=== PATIENT | female | born 1960 | race Caucasian/White ===

== ENCOUNTER 2020-03-28 09:35 | Outpatient (REF) | payer OTHER, SELFPAY ==
[2020-03-28 10:44] LABS: COVID-19 Test Negative (Negative)
== END 2020-03-28 09:36 | disposition home or self-care (01) ==
LOC: HO.LAB 09:35
PROVIDERS: PCP Internal Medicine; Visit Provider Internal Medicine
DX: Z20.828 Contact with and (suspected) exposure to other viral communicable diseases (principal)
CPT/HCPCS: 87635

== ENCOUNTER 2020-06-21 12:01 | Outpatient (REF) | payer OTHER, SELFPAY ==
[2020-06-21 12:22] LABS: COVID-19 Test Negative (Negative)
== END 2020-06-21 12:02 | disposition home or self-care (01) ==
LOC: HO.EMPCOV 12:01
PROVIDERS: Visit Provider Internal Medicine
DX: Z20.822 Contact with and (suspected) exposure to COVID-19 (principal)
CPT/HCPCS: 36415; 87635; C9803

== ENCOUNTER 2020-07-19 09:48 | Outpatient (REF) | payer OTHER, SELFPAY ==
[2020-07-19 10:08] LABS: MANUAL DIFF FLAG NO
[2020-07-19 10:10] LABS: Basophils Absolute Auto 0.1 X10*3/uL (0.0-0.2); Eosinophils Absolute Auto 0.1 X10*3/uL (0.0-0.4); Eosinophils Percent Auto 1.7 % (0-4); Hematocrit 43.3 % (37-47); Hemoglobin 14.2 g/dl (12.0-16.0); Imm Gran Abs Auto 0.01 X10*3/uL (0.00-0.03); Imm Gran Pct Auto 0.1 % (0.0-0.4); Lymphocytes Absolute Auto 2.1 X10*3/uL (1.2-4.9); Lymphocytes Percent Auto 28.7 % (20-40); Mean Corpuscular HGB Conc 32.8 g/dl (31.0-35.0); Mean Corpuscular Hemoglobin 31.1 pg (27.0-33.0); Mean Corpuscular Volume 94.7 fL (80-98); Monocytes Absolute Auto 0.6 X10*3/uL (0.1-1.2); Monocytes Percent Auto 8.6 % (2-11); Neutrophils Absolute Auto 4.4 X10*3/uL (2.0-8.3); Neutrophils Percent Auto 59.9 % (45-73); Platelet Count 270 X10*3/uL (160-400); Red Blood Count 4.57 X10*6/uL (4.20-5.50); Red Cell Distribution Width 12.7 % (11.0-16.0); White Blood Count 7.3 X10*3/uL (4.8-10.8)
[2020-07-19 10:41] LABS: Glucose Urine UA NEG (NEG); Leukocyte Esterase Urine NEG (NEG); Nitrite Urine NEG (NEG); Specific Gravity - Urine <= 1.005 (1.005-1.025); Urine Blood TRACE (NEG); Urine Ketones NEG (NEG); Urine Protein NEG (NEG-TRACE)
[2020-07-19 10:43] LABS: Appearance Urine CLEAR; Color Urine STRAW
[2020-07-19 10:56] LABS: Alanine Aminotransferase 13 U/L (0-31); Albumin Level 4.5 g/dL (3.5-5.0); Alkaline Phosphatase 80 U/L (39-117); Anion Gap 11 (12-20); Aspartate Amino Transferase 14 U/L (5-31); Bilirubin Total 0.5 mg/dL (0.0-1.0); Blood Urea Nitrogen 14 mg/dL (9-16); Calcium 9.5 mg/dL (8.4-10.2); Carbon Dioxide 30 mmol/L (22-29); Chloride 106 mmol/L (96-108); Cholesterol 230 mg/dL; Estimated Glomerular Filt Rate > 60; Glucose Fasting 91 mg/dL (60-99); HDL Cholesterol 56 mg/dL; LDL Cholesterol Calculated 153 mg/dl; Potassium 4.2 mmol/L (3.3-5.1); Sodium 143 mmol/L (135-145); Total Protein 6.9 g/dL (6.5-8.0); Triglycerides 108 mg/dL
[2020-07-19 11:17] LABS: Vitamin D 25-OH Total 48.8 ng/mL (>30)
[2020-07-19 11:49] LABS: RBC Urine 0-2 /HPF (0); Squamous Epithelial Cell Urine 1+ /LPF; WBC Urine 0 /HPF (0-4)
[2020-07-19 11:50] LABS: Amorphous Sediment Urine 1+ /LPF
[2020-07-19 12:07] LABS: Vitamin B12 161 pg/mL (200-900)
== END 2020-07-19 09:49 | disposition home or self-care (01) ==
LOC: HO.LAB 09:48
PROVIDERS: Visit Provider Internal Medicine
DX: Z00.00 Encounter for general adult medical examination without abnormal findings (principal); E55.9 Vitamin D deficiency, unspecified; E53.8 Deficiency of other specified B group vitamins; E78.00 Pure hypercholesterolemia, unspecified; D72.820 Lymphocytosis (symptomatic)
CPT/HCPCS: 36415; 80053; 80061; 81001; 82306; 82607; 82746; 85025

== ENCOUNTER 2020-07-30 08:11 | Outpatient (REF) | payer OTHER, SELFPAY ==
--- NOTE | ~2020-07-30 | MM_ITS ---
EXAMINATION: MM SCREENING DIGITAL BREAST TOMOSYNTHESIS, BILATERAL CLINICAL INFORMATION: Screening. Asymptomatic. The lifetime risk of breast cancer based on the Tyrer-Cuzick Model is 13%. COMPARISON: Mammography: 07/28/2019, 07/22/2018, 07/15/2017 TECHNIQUE: Digital breast tomosynthesis is performed in both the craniocaudal and mediolateral oblique views along with computer-aided detection (CAD). Synthesized 2D images are generated from the tomosynthesis. FINDINGS: There are scattered areas of fibroglandular density (ACR BI-RADS breast composition Category b). There are no significant masses, abnormal calcifications, or other abnormalities. There are some fine vascular calcifications. Low left axillary tail nodes stable. No significant changes from prior exams. MM/MM tomosynthesis screening BI IMPRESSION: No mammographic evidence of malignancy. ASSESSMENT: BI-RADS 2: Benign RECOMMENDATION: Routine annual mammography screening. This patient's information was entered into a reminder system with a target due date for their next mammogram.
== END 2020-07-30 08:12 | disposition home or self-care (01) ==
LOC: HO.MAMMO 08:11
PROVIDERS: PCP Internal Medicine; Visit Provider Internal Medicine
DX: Z12.31 Encounter for screening mammogram for malignant neoplasm of breast (principal)
CPT/HCPCS: 77063; 77067

== ENCOUNTER → 2020-09-19 13:13 | Outpatient (BNVA) | payer OTHER, SELFPAY | PROVIDERS: PCP Internal Medicine; Visit Provider Physician Assistant Medical | DX: Z13.89 Encounter for screening for other disorder (principal) | CPT/HCPCS: 99202 ==

== ENCOUNTER 2020-10-24 14:00 | Outpatient (REF) | payer OTHER, SELFPAY ==
[2020-10-24 16:41] LABS: Vitamin B12 290 pg/mL (200-900)
== END 2020-10-24 14:01 | disposition home or self-care (01) ==
LOC: HO.LNP 14:00
PROVIDERS: Visit Provider Internal Medicine
DX: E53.8 Deficiency of other specified B group vitamins (principal)
CPT/HCPCS: 82607; 82746

== ENCOUNTER 2021-02-04 15:45 | Outpatient (REF) | payer OTHER, SELFPAY ==
--- NOTE | ~2021-02-04 | XR_ITS ---
EXAMINATION: XR CHEST CLINICAL INFORMATION: Bronchospasm. COMPARISON: Most recent chest radiograph dated 04/14/2018. TECHNIQUE: 2 views of the chest were obtained. FINDINGS: The lungs are clear. The cardiomediastinal silhouette is normal in size. There is no pleural effusion or pneumothorax. No acute osseous abnormality. XR/XR chest 2V IMPRESSION: No acute cardiopulmonary findings.
== END 2021-02-04 15:46 | disposition home or self-care (01) ==
LOC: HO.XRAY 15:45
PROVIDERS: PCP Internal Medicine; Visit Provider Internal Medicine
DX: J98.01 Acute bronchospasm (principal)
CPT/HCPCS: 71046

== ENCOUNTER 2021-07-26 09:05 | Outpatient (REF) | payer OTHER, SELFPAY ==
[2021-07-26 10:59] LABS: MANUAL DIFF FLAG NO
[2021-07-26 11:10] LABS: Basophils Absolute Auto 0.1 X10*3/uL (0.0-0.2); Basophils Percent Auto 0.9 % (0-2); Eosinophils Absolute Auto 0.1 X10*3/uL (0.0-0.4); Eosinophils Percent Auto 2.1 % (0-4); Hematocrit 41.3 % (37.0-47.0); Hemoglobin 13.8 g/dl (12.0-16.0); Imm Gran Abs Auto 0.02 X10*3/uL (0.00-0.03); Imm Gran Pct Auto 0.3 % (0.0-0.4); Lymphocytes Absolute Auto 1.7 X10*3/uL (1.2-4.9); Lymphocytes Percent Auto 29.9 % (20-40); Mean Corpuscular HGB Conc 33.4 g/dl (31.0-35.0); Mean Corpuscular Hemoglobin 32.5 pg (27.0-33.0); Mean Corpuscular Volume 97.4 fL (80.0-98.0); Mean Platelet Volume 10.5 fL (9.4-12.3); Monocytes Absolute Auto 0.5 X10*3/uL (0.1-1.2); Monocytes Percent Auto 8.6 % (2-11); Neutrophils Absolute Auto 3.4 x10*3/uL (2.0-8.3); Neutrophils Percent Auto 58.2 % (45-73); Platelet Count 286 X10*3/uL (160-400); Red Blood Count 4.24 X10*6/uL (4.20-5.50); Red Cell Distribution Width 13.2 % (11.0-16.0); White Blood Count 5.8 X10*3/uL (4.8-10.8)
[2021-07-26 11:21] LABS: Appearance Urine CLEAR; Color Urine YELLOW; Glucose Urine UA NEG (NEG); Leukocyte Esterase Urine NEG (NEG); Nitrite Urine NEG (NEG); PH 6.5 (5.0-8.0); Specific Gravity - Urine <= 1.005 (1.005-1.025); Urine Blood TRACE (NEG); Urine Ketones NEG (NEG); Urine Protein NEG (NEG-TRACE)
[2021-07-26 11:27] LABS: Alanine Aminotransferase 14 U/L (0-31); Albumin Level 4.3 g/dL (3.5-5.0); Alkaline Phosphatase 74 U/L (39-117); Anion Gap 12 (12-20); Aspartate Amino Transferase 14 U/L (5-31); Bilirubin Total 0.4 mg/dL (0.0-1.0); Blood Urea Nitrogen 16 mg/dL (9-16); Calcium 9.4 mg/dL (8.4-10.2); Carbon Dioxide 28 mmol/L (22-29); Chloride 106 mmol/L (96-108); Cholesterol 254 mg/dL; Estimated Glomerular Filt Rate > 60; Glucose Fasting 94 mg/dL (60-99); HDL Cholesterol 59 mg/dL; LDL Cholesterol Calculated 177 mg/dl; Potassium 4.2 mmol/L (3.3-5.1); Sodium 142 mmol/L (135-145); Total Protein 6.7 g/dL (6.5-8.0); Triglycerides 94 mg/dL
[2021-07-26 11:37] LABS: Mucus Urine TRACE /LPF; Squamous Epithelial Cell Urine 1+ /LPF; WBC Urine 0 /HPF (0-4)
[2021-07-26 11:49] LABS: Vitamin D 25-OH Total 50.2 ng/mL (>30)
[2021-07-28 09:08] LABS: Folate 9.3 ng/mL (> or = 4.0); Vitamin B12 248 pg/mL (200-900)
== END 2021-07-26 09:06 | disposition home or self-care (01) ==
LOC: HO.HMGCLDS 09:05
PROVIDERS: Visit Provider Internal Medicine
DX: Z00.00 Encounter for general adult medical examination without abnormal findings (principal); E53.8 Deficiency of other specified B group vitamins; E78.00 Pure hypercholesterolemia, unspecified; D72.820 Lymphocytosis (symptomatic); E55.9 Vitamin D deficiency, unspecified; I48.0 Paroxysmal atrial fibrillation
CPT/HCPCS: 36415; 80053; 80061; 81001; 82306; 82607; 82746; 85025

== ENCOUNTER 2021-08-18 08:34 | Outpatient (REF) | payer OTHER, SELFPAY ==
--- NOTE | ~2021-08-18 | MM_ITS ---
EXAMINATION: MM SCREENING DIGITAL BREAST TOMOSYNTHESIS, BILATERAL CLINICAL INFORMATION: Screening. Asymptomatic. Prior history right stereotactic biopsy 05/13/2015 for calcifications (focal atypical ductal hyperplasia). Surgical biopsy 05/13/2015 (Fibrocystic changes, apocrine metaplasia, microcysts, sclerosing adenosis. No residual ADH). The lifetime risk of breast cancer based on the Tyrer-Cuzick Model is 26%. COMPARISON: Mammography: 07/30/2020, 07/28/2019, 07/22/2018, 07/15/2017, 06/19/2016, 05/23/2015, 05/13/2015, 05/01/2015 TECHNIQUE: Digital breast tomosynthesis is performed in both the craniocaudal and mediolateral oblique views along with computer-aided detection (CAD). Synthesized 2D images are generated from the tomosynthesis. FINDINGS: There are scattered areas of fibroglandular density (ACR BI-RADS breast composition Category b). There is minor scarring upper outer right breast consistent with the lumpectomy. Subtle asymmetric density is present central outer right breast 1.7 cm from nipple. Finding may represent incompletely compressed glandular tissue or summation artifact. Patient will be recalled for additional imaging. Neither breast shows abnormal calcifications. The axilla and skin contours are unremarkable. There is a incidental low left axillary tail node is similar to prior studies. Left breast shows no interval mass or developing density or architectural changes. MM/MM tomosynthesis screening BI IMPRESSION: 1. Right: Asymmetric density central outer breast on CC view possibly incompletely compressed glandular tissue or summation artifact. 2. Left: No mammographic evidence of malignancy. ASSESSMENT: BI-RADS 0: Incomplete - Need Additional Imaging Evaluation RECOMMENDATION: 1. Additional views of the right breast (rolled CC x 2; ML). 2. Targeted ultrasound if warranted after review of the additional views. 3. Radiology department staff will contact the patient for additional imaging. This patient's information was entered into a reminder system with a target due date for their next mammogram.
== END 2021-08-18 08:35 | disposition home or self-care (01) ==
LOC: HO.MAMMO 08:34
PROVIDERS: PCP Internal Medicine; Visit Provider Internal Medicine
DX: Z12.31 Encounter for screening mammogram for malignant neoplasm of breast (principal)
CPT/HCPCS: 77063; 77067

== ENCOUNTER 2021-08-22 08:16 | Outpatient (REF) | payer OTHER, SELFPAY ==
--- NOTE | ~2021-08-22 | MM_ITS ---
EXAMINATION: MM DIAGNOSTIC DIGITAL BREAST TOMOSYNTHESIS, RIGHT CLINICAL INFORMATION: Recall from screening for asymmetric density central right breast possibly incompletely compressed glandular tissue or summation artifact. Prior history focal atypical ductal hyperplasia status post excisional biopsy 05/13/2015. TC score 26%. COMPARISON: Mammography: 08/18/2021, 07/30/2020, 07/28/2019 TECHNIQUE: Digital breast tomosynthesis is performed. 2D images are generated from the tomosynthesis. The following views are obtained: Rolled CC x2, ML. FINDINGS: There are scattered areas of fibroglandular density (ACR BI-RADS breast composition Category b). Additional views show no persistent asymmetric density. There is no mass or architectural abnormality. Results are discussed with the patient at time of visit. MM/MM tomosynthesis added views R IMPRESSION: Additional views show no persistent asymmetric density. No significant changes from prior exams. ASSESSMENT: BI-RADS 1: Negative RECOMMENDATION: 1. Routine annual mammography screening. 2. The lifetime risk of breast cancer based on the Tyrer-Cuzick Model is 26%. Additional annual adjunct screening with breast MRI may be of benefit in women with a risk score of 20% or greater. This patient's information was entered into a reminder system with a target due date for their next mammogram.
== END 2021-08-22 08:17 | disposition home or self-care (01) ==
LOC: HO.MAMMO 08:16
PROVIDERS: Visit Provider Internal Medicine
DX: R92.2 Inconclusive mammogram (principal)
CPT/HCPCS: 77061; 77065

== ENCOUNTER 2021-09-01 15:28 | Outpatient (REF) | payer OTHER, SELFPAY ==
[2021-09-01 17:02] LABS: Blood Urea Nitrogen 18 mg/dL (9-16); Estimated Glomerular Filt Rate 53
== END 2021-09-01 15:29 | disposition home or self-care (01) ==
LOC: HO.LAB 15:28
PROVIDERS: Visit Provider Internal Medicine
DX: Z01.812 Encounter for preprocedural laboratory examination (principal)
CPT/HCPCS: 36415; 82565; 84520

== ENCOUNTER 2021-09-10 16:30 | Outpatient (REF) | payer OTHER, SELFPAY ==
--- NOTE | ~2021-09-10 | MR_ITS ---
EXAMINATION: MR BREAST WITHOUT AND WITH CONTRAST, BILATERAL CLINICAL INFORMATION: High-risk screening. The estimated lifetime risk of developing breast cancer is 26%. Prior history of focal atypical ductal hyperplasia post excisional biopsy. COMPARISON: None Mammography (nondiagnostic monitor review): 08/18/2021. TECHNIQUE: A 1.5 T system and a dedicated breast coil. T1-weighted sequences without fat-saturation were obtained prior to the administration of contrast. Fat-saturated T1 and T2-weighted sequences were also acquired. The patient received 6.5 mL of IV gadolinium-based contrast, Gadavist. Multiple sequential dynamic T1-weighted sequences were obtained through both breasts with fat-saturation. Subtracted images were reviewed. CAD postprocessing with 3-D reconstructions, maximum intensity projections and kinetic analysis was performed by the interpreting radiologist at an independent workstation and reviewed as a portion of this exam. FINDINGS: Amount of Remaining Fibroglandular Signal: There are scattered areas of fibroglandular tissue (ACR BI-RADS breast composition category B).* Background Parenchymal Enhancement: Mild Symmetry of Background Enhancement: Symmetric RIGHT BREAST: There are no suspicious findings. Masses: There are no suspicious enhancing masses. Non-mass Enhancement: There is no suspicious non-mass enhancement. Focus: There are no suspicious enhancing foci. Non-enhancing Findings: Associated findings: There are areas of architectural distortion consistent with previous surgery. There are some small cysts present. One of these may correspond to the suspected density on mammography. Kinetic Curve Assessment: Initial Phase: There are no suspicious areas of color signal. Delayed Phase: There are no areas of washout kinetics. LEFT BREAST: There are no suspicious findings. Masses: There are no suspicious enhancing masses. Non-mass Enhancement: There is no suspicious non-mass enhancement. Focus: There are no suspicious enhancing foci. Non-enhancing Findings: Associated Findings: There are a few small cysts present. Kinetic Curve Assessment: Initial Phase: There are no areas of suspicious color signal. Delayed Phase: There are no areas of washout kinetics. The axillary lymph nodes are morphologically normal. No suspicious internal mammary lymph nodes are seen. No suspicious abnormality in the visualized portions of chest or abdomen. MR/MR breast BI wo/w con IMPRESSION: No MR evidence of malignancy. ASSESSMENT: Right Breast: ACR BI-RADS 1: Negative examination. Left Breast: ACR BI-RADS 1: Negative examination. RECOMMENDATIONS: Recommend annual screening MRI in patients with an estimated lifetime risk of developing breast cancer greater than 20%.
== END 2021-09-10 16:31 | disposition home or self-care (01) ==
LOC: HO.MRI 16:30
PROVIDERS: Visit Provider Internal Medicine
DX: R92.8 Other abnormal and inconclusive findings on diagnostic imaging of breast (principal); R92.2 Inconclusive mammogram
CPT/HCPCS: 77049; A9585

== ENCOUNTER 2021-10-16 12:21 | Outpatient (REF) | payer OTHER, SELFPAY ==
--- NOTE | ~2021-10-16 | XR_ITS ---
EXAMINATION: XR CHEST CLINICAL INFORMATION: Pneumonia COMPARISON: Chest radiograph from 02/04/2021 TECHNIQUE: 2 views of the chest were obtained. FINDINGS: No focal consolidation. No pneumothorax. Trachea is midline. Cardiomediastinal silhouette is not enlarged. No large pleural effusion. Degenerative changes of the thoracolumbar spine. Soft tissues are unremarkable. XR/XR chest 2V IMPRESSION: No acute cardiopulmonary process.
== END 2021-10-16 12:22 | disposition home or self-care (01) ==
LOC: HO.HMGCX 12:21
PROVIDERS: Visit Provider Internal Medicine
DX: J18.0 Bronchopneumonia, unspecified organism (principal)
CPT/HCPCS: 71046

== ENCOUNTER → 2022-06-11 11:25 | Outpatient (BNVA) | payer OTHER, SELFPAY | PROVIDERS: PCP Internal Medicine; Visit Provider Internal Medicine | DX: Z13.89 Encounter for screening for other disorder (principal) | CPT/HCPCS: 36415; 84450; 84460; 86803; 87389; 99212 ==

== ENCOUNTER 2022-08-15 09:12 | Outpatient (REF) | payer OTHER, SELFPAY ==
[2022-08-15 11:19] LABS: MANUAL DIFF FLAG NO
[2022-08-15 11:27] LABS: Basophils Absolute Auto 0.1 X10*3/uL (0.0-0.2); Eosinophils Absolute Auto 0.2 X10*3/uL (0.0-0.4); Eosinophils Percent Auto 2.7 % (0-4); Hematocrit 41.7 % (37.0-47.0); Hemoglobin 13.7 g/dl (12.0-16.0); Imm Gran Abs Auto 0.01 X10*3/uL (0.00-0.03); Imm Gran Pct Auto 0.1 % (0.0-0.4); Lymphocytes Absolute Auto 2.1 X10*3/uL (1.2-4.9); Lymphocytes Percent Auto 30.7 % (20-40); Mean Corpuscular HGB Conc 32.9 g/dl (31.0-35.0); Mean Corpuscular Hemoglobin 31.9 pg (27.0-33.0); Mean Corpuscular Volume 97.2 fL (80.0-98.0); Mean Platelet Volume 10.6 fL (9.4-12.3); Monocytes Absolute Auto 0.5 X10*3/uL (0.1-1.2); Neutrophils Absolute Auto 3.9 x10*3/uL (2.0-8.3); Neutrophils Percent Auto 57.5 % (45-73); Platelet Count 269 X10*3/uL (160-400); Red Blood Count 4.29 X10*6/uL (4.20-5.50); White Blood Count 6.8 X10*3/uL (4.8-10.8)
[2022-08-15 11:54] LABS: Alanine Aminotransferase 13 U/L (0-31); Alkaline Phosphatase 79 U/L (39-117); Anion Gap 11 (12-20); Aspartate Amino Transferase 13 U/L (5-31); Bilirubin Total 0.5 mg/dL (0.0-1.0); Blood Urea Nitrogen 12 mg/dL (9-16); Calcium 8.8 mg/dL (8.4-10.2); Carbon Dioxide 29 mmol/L (22-29); Chloride 107 mmol/L (96-108); Cholesterol 237 mg/dL; Estimated Glomerular Filt Rate > 60; Glucose Fasting 106 mg/dL (60-99); HDL Cholesterol 50 mg/dL; LDL Cholesterol Calculated 163 mg/dl; Potassium 4.6 mmol/L (3.3-5.1); Sodium 142 mmol/L (135-145); Total Protein 6.1 g/dL (6.5-8.0); Triglycerides 121 mg/dL
[2022-08-15 12:10] LABS: Folate 9.5 ng/mL (> or = 4.0); Vitamin B12 517 pg/mL (200-900)
== END 2022-08-15 09:13 | disposition home or self-care (01) ==
LOC: HO.HMGCLDS 09:12
PROVIDERS: PCP Internal Medicine; Visit Provider Internal Medicine
DX: Z00.00 Encounter for general adult medical examination without abnormal findings (principal); E53.8 Deficiency of other specified B group vitamins; E55.9 Vitamin D deficiency, unspecified; D72.820 Lymphocytosis (symptomatic)
CPT/HCPCS: 36415; 80053; 80061; 82306; 82607; 82746; 85025

== ENCOUNTER 2022-08-22 12:51 | Outpatient (REF) | payer OTHER, SELFPAY ==
[2022-08-22 13:00] LABS: Appearance Urine Clear; Color Urine Yellow; Glucose Urine UA Negative (Negative); Leukocyte Esterase Urine Negative (Negative); Nitrite Urine Negative (Negative); Specific Gravity - Urine 1.015 (1.005-1.025); Urine Blood Negative (Negative); Urine Ketones Negative (Negative); Urine Protein Negative (Neg-Trace)
[2022-08-22 13:03] LABS: Bacteria Urine None Seen (None Seen); Hyaline Casts Urine 0-2 /LPF (0-2); WBC Urine 0-5 /HPF (0-5)
== END 2022-08-22 12:52 | disposition home or self-care (01) ==
LOC: HO.LNP 12:51
PROVIDERS: PCP Internal Medicine; Visit Provider Internal Medicine
DX: Z00.00 Encounter for general adult medical examination without abnormal findings (principal); E53.8 Deficiency of other specified B group vitamins; D72.820 Lymphocytosis (symptomatic); E55.9 Vitamin D deficiency, unspecified
CPT/HCPCS: 81001

== ENCOUNTER 2022-08-29 09:02 | Outpatient (REF) | payer OTHER, SELFPAY ==
--- NOTE | ~2022-08-29 | MM_ITS ---
EXAMINATION: MM SCREENING DIGITAL BREAST TOMOSYNTHESIS, BILATERAL CLINICAL INFORMATION: Screening. Asymptomatic. The lifetime risk of breast cancer based on the Tyrer-Cuzick Model is 7%. COMPARISON: Mammography: 08/22/2021, 08/18/2021, 07/30/2020; MR breasts 09/10/2021 TECHNIQUE: Digital breast tomosynthesis is performed in both the craniocaudal and mediolateral oblique views along with computer-aided detection (CAD). Synthesized 2D images are generated from the tomosynthesis. FINDINGS: There are scattered areas of fibroglandular density (ACR BI-RADS breast composition Category b). There are no significant masses, abnormal calcifications, or other abnormalities. Parenchymal pattern is similar to prior studies. There is no developing density or architectural abnormality. The axilla and skin contours are unremarkable. No significant changes. MM/MM tomosynthesis screening BI IMPRESSION: No mammographic evidence of malignancy. ASSESSMENT: BI-RADS 1: Negative RECOMMENDATION: Routine annual mammography screening. This patient's information was entered into a reminder system with a target due date for their next mammogram.
== END 2022-08-29 09:03 | disposition home or self-care (01) ==
LOC: HO.MAMMO 09:02
PROVIDERS: PCP Internal Medicine; Visit Provider Internal Medicine
DX: Z12.31 Encounter for screening mammogram for malignant neoplasm of breast (principal)
CPT/HCPCS: 77063; 77067

== ENCOUNTER 2022-09-04 15:27 | Outpatient (REF) | payer OTHER, SELFPAY ==
[2022-09-04 16:10] LABS: Iron 73 mcg/dL (30-160); Percent Iron Saturation 32 % (15-50); Total Iron Binding Capacity 227 mcg/dL (228-428); Unsaturated Iron Binding 154 ug/dL
== END 2022-09-04 15:28 | disposition home or self-care (01) ==
LOC: HO.LNP 15:27
PROVIDERS: Visit Provider Internal Medicine
DX: E53.8 Deficiency of other specified B group vitamins (principal); Z83.49 Family history of other endocrine, nutritional and metabolic diseases
CPT/HCPCS: 83540

== ENCOUNTER 2022-09-24 07:47 | Outpatient (REF) | payer OTHER, SELFPAY ==
[2022-09-24 08:30] LABS: Appearance Urine Clear; Color Urine Yellow; Glucose Urine UA Negative (Negative); Leukocyte Esterase Urine Negative (Negative); Nitrite Urine Negative (Negative); Specific Gravity - Urine 1.015 (1.005-1.025); UMIC TRIGGER UACC YES; Urine Blood Trace (Negative); Urine Ketones Negative (Negative); Urine Protein Negative (Neg-Trace)
[2022-09-24 08:36] LABS: Bacteria Urine None Seen (None Seen); Hyaline Casts Urine 0-2 /LPF (0-2); RBC Urine 0-2 /HPF (0-2); WBC Urine 0-5 /HPF (0-5)
== END 2022-09-24 07:48 | disposition home or self-care (01) ==
LOC: HO.LNP 07:47
PROVIDERS: PCP Internal Medicine; Visit Provider Internal Medicine
DX: R31.9 Hematuria, unspecified (principal)
CPT/HCPCS: 81001; 81003

== ENCOUNTER 2022-11-09 07:42 | Outpatient (REF) | payer OTHER, SELFPAY ==
[2022-11-09 07:58] LABS: Appearance Urine Clear; Color Urine Yellow; Glucose Urine UA Negative (Negative); Leukocyte Esterase Urine Negative (Negative); Nitrite Urine Negative (Negative); PH 6.5 (5.0-9.0); Urine Blood Negative (Negative); Urine Ketones Negative (Negative); Urine Protein Negative (Neg-Trace)
[2022-11-09 08:01] LABS: Bacteria Urine None Seen (None Seen); Hyaline Casts Urine 0-2 /LPF (0-2); RBC Urine 0-2 /HPF (0-2); Squamous Epithelial Cell Urine 0-2 /HPF (0-2); WBC Urine 0-5 /HPF (0-5)
== END 2022-11-09 07:43 | disposition home or self-care (01) ==
LOC: HO.LNP 07:42
PROVIDERS: PCP Internal Medicine; Visit Provider Internal Medicine
DX: R31.9 Hematuria, unspecified (principal)
CPT/HCPCS: 81001

== ENCOUNTER 2022-12-16 14:17 | Outpatient (REF) | payer OTHER, SELFPAY ==
--- NOTE | ~2022-12-16 | MR_ITS ---
EXAMINATION: MR BREAST WITHOUT AND WITH CONTRAST, BILATERAL CLINICAL INFORMATION: High-risk screening. COMPARISON: MRI 09/10/2021 TECHNIQUE: Imaging was performed with a dedicated breast coil. Prior to the administration of contrast, bilateral axial T1 and bilateral axial T2 weighted sequences were obtained. After the uneventful administration of?6.5 mL of Gadavist, dynamic contrast-enhanced VIBRANT series through the breasts in the axial plane were performed. Subtracted images were performed and reviewed. A delayed sagittal sequence through both breasts was acquired. Additionally, CAD post-processing, including maximum intensity projections, 3-D reconstructions and kinetic analysis, were performed an independent workstation and reviewed by the interpreting radiologist is a portion of this exam. FINDINGS: The patient's fibroglandular tissue demonstrates mild background enhancement. LEFT BREAST: No suspicious masslike or non-masslike enhancement. No abnormal skin thickening or nipple retraction. No abnormal architectural distortion. Review of the T2 weighted images demonstrates no fibrocystic changes or dilated ducts. Review of kinetic images reveals no additional findings. RIGHT BREAST: No suspicious masslike or non-masslike enhancement. No abnormal skin thickening or nipple retraction. No abnormal architectural distortion. Review of the T2 weighted images demonstrates no fibrocystic changes or dilated ducts. Review of kinetic images reveals no additional findings. There is no suspicious internal mammary chain or axillary adenopathy. Limited views of the chest and abdomen are unremarkable. MR/MR breast BI wo/w con IMPRESSION: No MR specific evidence of malignancy. ASSESSMENT: LEFT BREAST: BI-RADS 1-Negative RIGHT BREAST: BI-RADS 1-Negative RECOMMENDATIONS: Clinical follow-up. Continued annual mammographic surveillance. Further breast MRI as risk factors dictate.
== END 2022-12-16 14:18 | disposition home or self-care (01) ==
LOC: HO.MRI 14:17
PROVIDERS: PCP Internal Medicine; Visit Provider Internal Medicine
DX: R92.8 Other abnormal and inconclusive findings on diagnostic imaging of breast (principal)
CPT/HCPCS: 77049; A9585

== ENCOUNTER 2023-02-23 11:10 | Outpatient (REF) | payer OTHER, SELFPAY ==
[2023-02-23 12:28] LABS: Blood Urea Nitrogen 8 mg/dL (9-16); Estimated Glomerular Filt Rate > 60
== END 2023-02-23 11:11 | disposition home or self-care (01) ==
LOC: HO.LNP 11:10
PROVIDERS: Visit Provider Internal Medicine
DX: Z01.812 Encounter for preprocedural laboratory examination (principal)
CPT/HCPCS: 82565; 84520

== ENCOUNTER 2023-02-25 11:12 | Outpatient (REF) | payer OTHER, SELFPAY ==
--- NOTE | ~2023-02-25 | CT_ITS ---
EXAMINATION: CT ABDOMEN AND PELVIS WITH CONTRAST CLINICAL INFORMATION: Diverticulitis COMPARISON: None available. TECHNIQUE: Multidetector volumetric images were obtained from the superior aspect of the liver through the pubic symphysis following administration 85 mL of Omnipaque 350 intravenous contrast. Sagittal and coronal reformatted images were obtained on the technologist's workstation. Oral contrast: No This CT examination was performed using dose optimization techniques as appropriate, variously including the following: *Automated exposure control *Adjustment of mA and/or kV according to patient size (this includes techniques or standardized protocols for targeted exams where dose is matched to indication/reason for exam; i.e. extremities or head) *Use of iterative reconstruction technique DLP: 433 mGy-cm FINDINGS: EXIT BOOTH AGENT: Diverticular disease. Distended ascending colon. LUNG BASES: The visualized lung bases are unremarkable. Nonenlarged heart. No pericardial effusion. LIVER, GALLBLADDER, AND BILIARY TREE: The liver is normal in size, shape, and attenuation. No focal hepatic lesion or biliary ductal dilatation is present. The gallbladder is unremarkable with no evidence of radiopaque gallstones, gallbladder wall thickening, or obvious pericholecystic inflammatory changes. PANCREAS: Unremarkable. SPLEEN: Unremarkable. ADRENAL GLANDS: Unremarkable. KIDNEYS AND URETERS: The kidneys are normal in size, shape, and attenuation. No hydronephrosis, hydroureter, or calculi seen. 5 cm right lower pole renal cyst. No perinephric stranding. BLADDER: Unremarkable. GASTROINTESTINAL TRACT: Under distended stomach. Nonobstructive bowel pattern. Unremarkable appendix. Diverticulosis. Thickened sigmoid colon but no surrounding inflammatory changes to suggest acute diverticulitis. Mild fecal retention. ABDOMINAL WALL: Small fat filled umbilical hernia. LYMPH NODES: No pathologic lymphadenopathy. VASCULAR: Atherosclerotic calcifications nonaneurysmal aorta and iliac arteries. Unremarkable inferior vena cava and iliac veins. Portal system. PELVIC VISCERA: Status post hysterectomy. Left hemipelvic phlebolith. OSSEOUS STRUCTURES: No suspicious osseous lesions CT/CT abdomen pelvis w IV con IMPRESSION: Extensive diverticulosis. No CT evidence of diverticulitis. Right renal cyst. Fleischner guidelines were followed.
[2023-02-25] MEDS: iohexoL 350 MG/ML 100 ML INFUS..BTL 85 ML IV (14:30)
[2023-02-25] MEDS: Barium Sulfate Oral (Vanilla) 450 ML ORAL.SUSP 900 ML PO (14:32)
== END 2023-02-25 11:13 | disposition home or self-care (01) ==
LOC: HO.CT 11:12
PROVIDERS: PCP Internal Medicine; Visit Provider Internal Medicine
DX: K57.92 Diverticulitis of intestine, part unspecified, without perforation or abscess without bleeding (principal)
CPT/HCPCS: 74177; Q9967

== ENCOUNTER 2023-09-18 07:53 | Outpatient (REF) | payer OTHER, SELFPAY ==
[2023-09-18 11:30] LABS: Appearance Urine Clear; Color Urine Yellow; Glucose Urine UA Negative (Negative); Leukocyte Esterase Urine Negative (Negative); Nitrite Urine Negative (Negative); PH 7.5 (5.0-9.0); Specific Gravity - Urine <= 1.005 (1.005-1.025); Urine Blood Negative (Negative); Urine Ketones Negative (Negative); Urine Protein Negative (Neg-Trace)
[2023-09-18 11:33] LABS: MANUAL DIFF FLAG NO
[2023-09-18 11:33] LABS: Bacteria Urine None Seen (None Seen); Hyaline Casts Urine 0-2 /LPF (0-2); RBC Urine 0-2 /HPF (0-2); Squamous Epithelial Cell Urine 0-2 /HPF (0-2); WBC Urine 0-5 /HPF (0-5)
[2023-09-18 11:40] LABS: Basophils Absolute Auto 0.1 X10*3/uL (0.0-0.2); Basophils Percent Auto 0.9 % (0-2); Eosinophils Absolute Auto 0.2 X10*3/uL (0.0-0.4); Eosinophils Percent Auto 2.3 % (0-4); Hematocrit 41.6 % (37.0-47.0); Imm Gran Abs Auto 0.01 X10*3/uL (0.00-0.03); Imm Gran Pct Auto 0.2 % (0.0-0.4); Lymphocytes Absolute Auto 1.6 X10*3/uL (1.2-4.9); Lymphocytes Percent Auto 25.3 % (20-40); Mean Corpuscular HGB Conc 33.7 g/dl (31.0-35.0); Mean Corpuscular Hemoglobin 32.2 pg (27.0-33.0); Mean Corpuscular Volume 95.6 fL (80.0-98.0); Mean Platelet Volume 10.5 fL (9.4-12.3); Monocytes Absolute Auto 0.5 X10*3/uL (0.1-1.2); Monocytes Percent Auto 7.8 % (2-11); Neutrophils Absolute Auto 4.1 x10*3/uL (2.0-8.3); Neutrophils Percent Auto 63.5 % (45-73); Platelet Count 271 X10*3/uL (160-400); Red Blood Count 4.35 X10*6/uL (4.20-5.50); Red Cell Distribution Width 13.5 % (11.0-16.0); White Blood Count 6.4 X10*3/uL (4.8-10.8)
[2023-09-18 11:55] LABS: Alanine Aminotransferase 14 U/L (0-31); Albumin Level 4.2 g/dL (3.5-5.0); Alkaline Phosphatase 75 U/L (39-117); Anion Gap 11 (12-20); Aspartate Amino Transferase 15 U/L (5-31); Bilirubin Total 0.5 mg/dL (0.0-1.0); Blood Urea Nitrogen 16 mg/dL (9-16); Calcium 9.5 mg/dL (8.4-10.2); Carbon Dioxide 28 mmol/L (22-29); Chloride 106 mmol/L (96-108); Cholesterol 223 mg/dL (<200); Estimated Glomerular Filt Rate > 60; Glucose Fasting 97 mg/dL (60-99); HDL Cholesterol 58 mg/dL (>40); LDL Cholesterol Calculated 147 mg/dL (<100); Potassium 4.1 mmol/L (3.3-5.1); Sodium 141 mmol/L (135-145); Total Protein 6.7 g/dL (6.5-8.0); Triglycerides 91 mg/dL (<150)
[2023-09-18 12:13] LABS: Vitamin D 25-OH Total 56.8 ng/mL (>30)
[2023-09-18 12:23] LABS: Folate 8.8 ng/mL (> or = 4.0); Vitamin B12 584 pg/mL (200-900)
== END 2023-09-18 07:54 | disposition home or self-care (01) ==
LOC: HO.HMGCLDS 07:53
PROVIDERS: PCP Internal Medicine; Visit Provider Internal Medicine
DX: Z00.00 Encounter for general adult medical examination without abnormal findings (principal); Z13.6 Encounter for screening for cardiovascular disorders; E53.8 Deficiency of other specified B group vitamins; D72.820 Lymphocytosis (symptomatic)
CPT/HCPCS: 36415; 80053; 80061; 81001; 82306; 82607; 82746; 85025

== ENCOUNTER 2023-09-25 09:58 | Outpatient (REF) | payer OTHER, SELFPAY ==
--- NOTE | ~2023-09-25 | MM_ITS ---
EXAMINATION: MM SCREENING DIGITAL BREAST TOMOSYNTHESIS, BILATERAL CLINICAL INFORMATION: Screening. Asymptomatic. The patient is status post right breast excision in 2015 showing atypical ductal hyperplasia. COMPARISON: Mammography: This study is compared with prior exams dating back to 2019. TECHNIQUE: Digital breast tomosynthesis is performed in both the craniocaudal and mediolateral oblique views along with computer-aided detection (CAD). Synthesized 2D images are generated from the tomosynthesis. FINDINGS: There are scattered areas of fibroglandular density (ACR BI-RADS breast composition Category b). There are no significant masses, abnormal calcifications, or other abnormalities. MM/MM tomosynthesis screening BI IMPRESSION: No mammographic evidence of malignancy. ASSESSMENT: BI-RADS BI-RADS 1 - Negative RECOMMENDATION: Routine annual mammography screening. 1 year F/U This examination should not preclude the clinical evaluation of a suspicious palpable abnormality. This patient's information was entered into a reminder system with a target due date for their next mammogram.
== END 2023-09-25 09:59 | disposition home or self-care (01) ==
LOC: HO.MAMMO 09:58
PROVIDERS: PCP Internal Medicine; Visit Provider Internal Medicine
DX: Z12.31 Encounter for screening mammogram for malignant neoplasm of breast (principal)
CPT/HCPCS: 77063; 77067

== ENCOUNTER → 2023-09-25 10:15 | Outpatient (BNV) | payer OTHER, SELFPAY | PROVIDERS: PCP Internal Medicine; Visit Provider Radiology Diagnostic Radiology | DX: Z12.31 Encounter for screening mammogram for malignant neoplasm of breast (principal) | CPT/HCPCS: 77063; 77067 ==

== ENCOUNTER 2024-06-13 09:33 | Day surgery (SDC) | payer MEDICARE, OTHER, SELFPAY ==
[2024-06-09 14:49] VITALS: BMI 25.8
--- NOTE | 2024-06-12 09:54 | P.CONAN_ITS ---
Documented by User: Gisel Keene NP 06/12/24 09:54 HPI - Anesthesia Eval Consult details Narrative: 63yo F for Colonoscopy [facility] Past Medical History Medical History Paroxysmal atrial fibrillation Diverticulosis Surgical History Surgical History History of surgery on arm History of carpal tunnel release Hx of tonsillectomy Hx of hysterectomy H/O colonoscopy Social History Social History Patient Tobacco Use Status: Current everyday Tobacco user Tobacco use type: Cigarette Cigarettes Per Day: 15 Smoked in Last 30 Days: Yes Use of substances other than those prescribed or required for medical reasons: No Are you DNR?: No Advance Directives: No Advance Directives Information Provided: Yes Meds Allergies Allergy/AdvReac Type Severity Reaction Status Date / Time NARCOTICS Allergy Intermediate NAUSEA Uncoded 06/13/24 10:33 Home Medications ?Medication ?Instructions ?Recorded ?Confirmed ?Last Taken ?Type albuterol sulfate 90 mcg/actuation 2 puff inhalation Q6H PRN 06/09/24 06/13/24 06/13/24 08:00 History aerosol inhaler Shortness Of Breath Or Wheezing Exam Height,Weight and Vital Signs: Height 5 ft 1.5 in Weight 63.049 kg Assessment and Plan Assessment Anesthesia Assessment: Chart Reviewed Documented by User: Danielle Cox MD 06/13/24 13:24 PMFSH Past Medical History Medical History Paroxysmal atrial fibrillation Diverticulosis Family History Family history of problems with anesthesia: No Surgical History Surgical History History of surgery on arm History of carpal tunnel release Hx of tonsillectomy Hx of hysterectomy H/O colonoscopy History of Problems with Anesthesia: No Social History Social History Patient Tobacco Use Status: Current everyday Tobacco user Tobacco use type: Cigarette Cigarettes Per Day: 15 Smoked in Last 30 Days: Yes Use of substances other than those prescribed or required for medical reasons: No Are you DNR?: No Advance Directives: No Advance Directives Information Provided: Yes Meds Allergies Allergy/AdvReac Type Severity Reaction Status Date / Time NARCOTICS Allergy Intermediate NAUSEA Uncoded 06/13/24 10:33 Home Medications ?Medication ?Instructions ?Recorded ?Confirmed ?Last Taken ?Type albuterol sulfate 90 mcg/actuation 2 puff inhalation Q6H PRN 06/09/24 06/13/24 06/13/24 08:00 History aerosol inhaler Shortness Of Breath Or Wheezing Exam Airway Mallampati Class: II TM Dist: >3cm Neck ROM: Full Heart: rrr Lungs: cta Assessment and Plan Assessment Anesthesia Assessment: Anesthesia Plan Discussed Final Anesthetic Review Family History of Problems with Anesthesia: No History of Problems with Anesthesia: No NPO: Yes ASA Class: II Final Preanesthetic Review: No Changes in Pt Med Stat, Meds/Allgs Chart Revi ewed, Consent Obtained/Reviewed and Anes Risks/Benef Reviewed Patient Risk: Low Procedure Risk: Low Anesthetic Plan Anesthetic Plan: MAC: Disposition: Standard PACU
--- OUTSIDE RECORDS SUMMARY | 2024-06-13 09:49 | XMS_ITS ---
Author Organization [facility] Address [address] [place] [id number] Care Team Providers Care Memory Care Program Resident Name Role Phone Melecio Flores MD Primary Care Provider Se Lane Jr, Mitchell Unavailable [phone] REASON FOR VISIT Patient presents today for a colon screening Encounters Encounter Location Date Provider Diagnosis [facility] [address] [place] [id number] 02/25/[address] PLAN OF TREATMENT Next Appt Details Provider Name:Mitchell ruby Jr, 06/13/2024 11:00:00 AM, [address] [place] [address] , [place], [place], [phone],
--- OUTSIDE RECORDS SUMMARY | 2024-06-13 09:49 | XMS_ITS ---
Author Organization [facility] Address [address] [place] [address] Care Team Providers Care Trousseau Consultant Name Role Phone Sandra THORNTON, Melecio Primary Care Provider Mitchell Payton Jr Unavailable [phone] ALLERGIES Allergen (clinical drug ingredient) Drug/Non Drug Allergy documented on EMR Reaction Allergy Type Onset Date Status narcotics (uncoded) sensitivity Allergy Active REASON FOR VISIT Patient presents today for a colon screeniing MEDICATIONS Medication SIG (Take, Route, Frequency, Duration) Notes Start Date End Date Status Albuterol Sulfate HFA 108 (90 Base) MCG/ACT 1 puff as needed Inhalation every 4 hrs as needed Active MiraLax (colon prep) 17 GM/SCOOP mixed with Gatorade or Crystal Light Orally begin at 5:00 p.m. the day before the procedure for 1 day 05/03/2024 Active IMMUNIZATIONS Vaccine Route Administration Date Status Comme nts Influenza Unknown 05/03/2024 Refused SOCIAL HISTORY Tobacco Use: Social History Observation Description Date Details (start date - stop date) Current Smoker NA - NA Sex Assigned At : Social History Observation Description Sex Assigned At Unknown Tobacco Use/Smoking Question Answer Notes Patient is a current smoker How often do you smoke cigarettes? every day How many cigarettes a day do you smoke? 11-20 How soon after you wake up do you smoke your fir st cigarette? 6-30 minutes Are you interested in quitting? Not ready to lorie t VITAL SIGNS BMI 25.91 kg/m2 05/03/2024 Blood pressure systolic 000 mm Hg 05/03/20 24 Blood pressure diastolic 00 mm Hg 024 Height 61.5 in 05/03/2024 Temperature 97.5 degrees Fahrenheit 05/03/20 24 Weight 139 lb 6 oz lbs 05/03/2024 Encounters Encounter Location Date Provider Diagnosis [facility] [address] [place] [address] 05/03/[address] Colon cancer screening Z12.11 ASSESSMENTS Encounter Date Diagnosis Assessment Notes Treatment Notes Treatment Clinical Notes 05/03/2024 Colon cancer screening (ICD-10 - Z12.11) Colonoscopy material was printed PLAN OF TREATMENT Medication Medication Name Sig Start Date Stop Date Notes MiraLax (colon prep) 17 GM/SCOOP mixed with Gatorade or Crystal Light Orally begin at 5:00 p.m. the day before the procedure for 1 day 05/03/2024 Treatment Notes Assessment Notes Colon cancer screening Colonoscopy mater ial was printed Future Test Test Name Order Date COLONOSCOPY 05/03/2024 Next Appt Details Follow Up: 1 Year, Reason: Provider Name:Mitchell ruby Jr, 06/13/2024 11:00:00 AM, [address] [place] [address] , [place], [place], [phone], Progress Notes * Examination Category Sub-Category Detail Notes General Examination GENERAL APPEARANCE: in no ac lorelei distress HEAD: normocephalic EYES: sclera non-icteric NECK/THYROID: no lymphadenopathy HEART: S1, S2 normal, no mu rmurs CHEST: normal shape and exp ansion LUNGS: clear to auscultatio n bilaterally ABDOMEN: soft, nontender, non distended, bowel sounds present, no organomegaly SKIN: anicteric EXTREMITIES: no clubbing, cyanosi s, or edema PSYCH: cognitive function i ntact ORAL CAVITY: mucosa moist
--- OUTSIDE RECORDS SUMMARY | 2024-06-13 09:49 | XMS_ITS | Patient Health Record ---
Author Organization [facility] Address [address] [place] [address] Care Team Providers Care Cms Expert Name Role Phone Sandra THORNTON, Melecio Primary Care Provider Mitchell Payton Jr Unavailable ALLERGIES Allergen (clinical drug ingredient) Drug/Non Drug Allergy documented on EMR Reaction Allergy Type Onset Date Status narcotics (uncoded) sensitivity Allergy Active REASON FOR REFERRAL No Information MEDICATIONS Medication SIG (Take, Route, Frequency, Duration) [...] Administration Date Status Comme nts Influenza Unknown 03/07/2018 Administered Influenza Unknown 05/03/2024 Refused SOCIAL HISTORY Tobacco [...] in quitting? Not ready to lorie t PROBLEMS Problem Type ICD Code Onset Dates Problem Status W/U Status Risk SNOMED Code Notes Problem Colon cancer screening (Z12.11) Active confirmed 443494263 Problem Encounter for other preprocedural examination (Z01.818) Active confirmed 369245973 Problem Aspirin long-term use (Z79.82) Active confirmed [id number] VITAL SIGNS Temperature 97.5 degrees Fahrenheit 05/03/2024 Blood pressure diastolic 00 mm Hg 05/03/2024 Height 61.5 in 05/03/2024 Blood pressure systolic 000 mm Hg 05/03/2024 Weight 139 lb 6 oz lbs 05/03/2024 BMI 25.91 kg/m2 05/03/2024 Encounters Encounter Location Date Provider Diagnosis [facility] [address] [place] [id number] 06/13/[address] [facility] [address] [place] [phone] 02/25/[address] [facility] [address] [place] [phone] 05/03/[address] Colon cancer screening Z12.11 ASSESSMENTS Encounter Date Diagnosis Assessment Notes Treatment Notes Treatment Clinical Notes 05/03/2024 Colon cancer screening (ICD-10 - Z12.11) Colonoscopy material was printed PLAN OF TREATMENT Future Test Test Name Order Date COLONOSCOPY 03/30/2013 COLONOSCOPY 09/29/2018 COLONOSCOPY 05/03/2024 Next Appt Details Provider Name:Mitchell ruby Jr, 06/13/2024 11:00:00 AM, [address] [place] [address] , [place], [place], [phone], Insurance Providers Payer Name Payer Address Payer Phone Subscriber Number Group Number Insured Name Patient Relationship to Insured Coverage Start Date Coverage End Date MEDICARE OF [place] [address] [place] [address] [id number] ELHAM SEGOVIA Self - patient is the insured [place] [employer] [address] [place] [address] [id number] ELHAM SEGOVIA Self - patient is the insured MEDICAL (GENERAL) HISTORY Medical History History ICD Code Colonoscopy 01/23, diverticul osis and small hemorrhoids, five-year followup for family history Paroxysmal atrial fibrillation Surgical History Surgery Date(Month/Year) hysterectomy ulnar transposition tonsillectomy carpal tunnel release
--- OUTSIDE RECORDS SUMMARY | 2024-06-13 09:49 | XMS_ITS ---
Author Organization Melecio Flores MD Address [address] [place] [phone] Care Team Providers Care Shipping Specialist Name Role Phone Melecio Flores Primary Care Provider [phone] REASON FOR VISIT RF Pro Air MEDICATIONS Medication SIG (Take, Route, Frequency, Duration) Notes Start Date End Date Status ProAir HFA 108 (90 Base) MCG/ACT 2 puffs as needed Inhalation every 6 hrs for 30 days 03/30/2019 Active Encounters Encounter Location Date Provider Diagnosis Melecio Flores MD [address] [place] [phone] 02/08/2024 Melecio Flores Moderate persistent asthmatic bronchitis with acute exacerbation J45.41 ASSESSMENTS Encounter Date Diagnosis Assessment Notes Treatment Notes Treatment Clinical Notes 02/08/2024 Moderate persistent asthmatic bronchitis with acute exacerbation (ICD-10 - J45.41) PLAN OF TREATMENT Medication Medication Name Sig Start Date Stop Date Notes ProAir HFA 108 (90 Base) MCG/ACT 2 puffs as needed Inhalation every 6 hrs for 30 days 03/30/2019 Next Appt Details Provider Name:Melecio soria, 10/31/2024 07:15:00 AM, [address] [place] [address], [address], [place], [phone], Provider Name:Melecio soria, 11/07/2024 02:30:00 PM, [address] [place] [address], [address], [place], [place], [phone],
--- OUTSIDE RECORDS SUMMARY | 2024-06-13 09:50 | XMS_ITS ---
Author Organization Melecio Flores MD Address 10 [facility] [address] [place] [phone] Care Team Providers Care Comb Machine Operator Name Role Phone Melecio Flores Primary Care Provider REASON FOR VISIT MRI bilateral breast Encounters Encounter Location Date Provider Diagnosis Melecio Flores MD 10 [facility] [address] [place] [phone] 01/25/2024 Melecio Flores PLAN OF TREATMENT Next Appt Details Provider Name:Melecio soria, 10/31/2024 07:15:00 AM, [address] [place] [address], [address], [phone], Provider Name:Melecio soria, 11/07/2024 02:30:00 PM, [address] [place] [address], [address], [phone],
--- OUTSIDE RECORDS SUMMARY | 2024-06-13 09:50 | XMS_ITS ---
Author Organization Melecio Flores MD Address [address] [facility] [address] [place] [phone] Care Team Providers Care Fast Brim Pouncer Name Role Phone Melecio Flores Primary Care Provider REASON FOR VISIT BILL DENIED Encounters Encounter Location Date Provider Diagnosis Melecio Flores MD 10 [facility] [address] [place] [phone] 01/17/2024 Melecio Flores PLAN OF TREATMENT Next Appt Details Provider Name:Melecio soria, 10/31/2024 07:15:00 AM, [address] [place] [address], [address] [place] [address], [phone], Provider Name:Melecio soria, 11/07/2024 02:30:00 PM, [address] [place] [address], [address], [phone],
--- OUTSIDE RECORDS SUMMARY | 2024-06-13 09:50 | XMS_ITS | Patient Health Record ---
Author Organization Melecio Flores MD Address [address] [place], [place] [phone] Care Team Providers Care Forming Roll Operator Name Role Phone Melecio Flores Primary Care Provider ALLERGIES No Known Allergies RESULTS Component Value Reference Range Notes Complete Blood Count Auto Di ff Reviewed date:09/18/2023 05:18:26 PM Interpretation: Performing Lab:[facility], [address] [place] [phone] Notes/Report: White Blood Count 6.4 4.8-10.8 X10*3/uL Red Blood Count 4.35 4.20-5.50 X10*6/uL Hemoglobin 14.0 12.0-16.0 g/dl Hematocrit 41.6 37.0-47.0 % Mean Corpuscular Volume 95.6 80.0-98.0 fL Mean Corpuscular Hemoglobin 32.2 27.0-33.0 pg Mean Corpuscular HGB Conc 33.7 31.0-35.0 g/dl Red Cell Distribution Width 13.5 11.0-16.0 % Platelet Count 271 160-400 X10*3/uL Mean Platelet Volume 10.5 9.4-12.3 fL Neutrophils Percent Auto 63.5 45-73 % Imm Gran Pct Auto 0.2 0.0-0.4 % Lymphocytes Percent Auto 25.3 20-40 % Monocytes Percent Auto 7.8 2-11 % Eosinophils Percent Auto 2.3 0-4 % Basophils Percent Auto 0.9 0-2 % NRBC Pct Auto 0.0 0.0-0.2 /100WBC Neutrophils Absolute Auto 4.1 2.0-8.3 x10*3/u L Imm Gran Abs Auto 0.01 0.00-0.03 X10*3/uL Lymphocytes Absolute Auto 1.6 1.2-4.9 X10*3/u L Monocytes Absolute Auto 0.5 0.1-1.2 X10*3/uL Eosinophils Absolute Auto 0.2 0.0-0.4 X10*3/u L Basophils Absolute Auto 0.1 0.0-0.2 X10*3/uL NRBC Abs Auto 0.000 0.0-0.012 X10*3/uL Comprehensive [place]. Panel Fa st Reviewed date:09/18/2023 05:15:52 PM Interpretation: Performing Lab:[facility], [address] [place] [phone] Notes/Report: Sodium 141 135-145 mmol/L Potassium 4.1 3.3-5.1 mmol/L Chloride 106 96-108 mmol/L Carbon Dioxide 28 22-29 mmol/L Anion Gap 11 12-20 Blood Urea Nitrogen 16 9-16 mg/dL Creatinine 0.78 0.5-1.4 mg/dL Estimated Glomerular Filt Rate > 60 NOTE: For -Dominican individuals, multiply the result by 1.210. Chronic Kidney Disease: Estimated GFR < 60 mL/min/1.73m2 Severe Kidney Disease: Estimated GFR < 15 mL/min/1.73m2 Glucose Fasting 97 60-99 mg/dL Calcium 9.5 8.4-10.2 mg/dL Bilirubin Total 0.5 0.0-1.0 mg/dL Aspartate Amino Transferase 15 5-31 U/L Alanine Aminotransferase 14 0-31 U/L Total Protein 6.7 6.5-8.0 g/dL Albumin Level 4.2 3.5-5.0 g/dL Alkaline Phosphatase 75 39-117 U/L Lipid Panel Reviewed date:09/18/2023 05:14:43 PM Interpretation: Performing Lab:[address] [phone] Notes/Report: Triglycerides 91 <150 mg/dL Desirable Triglyceride: less than 150 mg/dL Borderline High Triglyceride 150-199 mg/dL High Triglyceride: 200-499 mg/dL Very High Triglyceride: greater than or equal to 5OO mg/dL Cholesterol 223 <200 mg/dL Desirable Cholesterol: less than 200 mg/dL Borderline High Cholesterol: 200-239 mg/dL High Cholesterol: greater than 239 mg/dL LDL Cholesterol Calculated 147 <100 mg/dL Desirable LDL: less than 100 mg/dL Near Optimal/Above Optimal LDL: 110-129 mg/dL Borderline High LDL: 130-159 mg/dL High LDL: 160-189 mg/dL Very High LDL: greater than or equal to 190 mg/dL HDL Cholesterol 58 >40 mg/dL Desirable HDL: greater than 40 mg/dL Note: This HDL assay may give artificially low results in patients with liver disease. Vitamin B12 and Folate Reviewed date:09/18/2023 05:15:11 PM Interpretation: Performing Lab:[facility], [address] [place] [phone] Notes/Report: Vitamin B12 584 200-900 pg/mL NORMAL 200-900 PG/ML INDETERMINATE 160-199 PG/ML DEFICIENT < 160 PG/ML Folate 8.8 > or = 4.0 ng/mL Reference Values: > or = 4.0 ng/mL < 4.0 ng/mL suggests folate deficiency Methotrexate, aminopterin and folinic acid (leucovorin) are chemotherapeutic agents whose molecular structures are similar to folate; therefore, the Central Service Tech folate assay cannot be used for patients using these drugs. Vitamin D 25-OH Total Reviewed date:09/18/2023 05:15:22 PM Interpretation: Performing Lab:[address] [phone] Notes/Report: Vitamin D 25-OH Total 56.8 >30 ng/mL Health Based Reference Values* < 20 ng/mL Deficient 20-30 ng/mL Insufficient > 30 ng/mL Sufficient *Irma EDWARDS. N Engl J Med. 2007;357:266-280 Care must be taken in interpreting Vitamin D results from different laboratories and methodologies. Published data demonstrated that results from patients undergoing hemodialysis may show a negative bias when tested with various automated 25-OH vitamin D assays when compared to LC-MS/MS. When testing samples from patients whose predominant form of Vitamin D is Vitamin D2, such as patients receiving Vitamin D2 supplementation, results that are subtherapeutic should be confirmed with another method such as LC-MS/MS. UA ClnCatch+Micro w/rflx Cul t Reviewed date:09/18/2023 05:18:50 PM Interpretation: Performing Lab:[facility], [address] [place] [phone] Notes/Report: Urine, Clean Catch Color Urine Yellow Appearance Urine Clear PH 7.5 5.0-9.0 Glucose Urine UA Negative Negative mg/dL Urine Blood Negative Negative Specific [place] - Urine <= 1.005 1.005-1.025 Urine Protein Negative Neg-Trace mg/dL Urine Ketones Negative Negative mg/dL Nitrite Urine Negative Negative Leukocyte Esterase Urine Negative Negative RBC Urine 0-2 0-2 /HPF WBC Urine 0-5 0-5 /HPF Squamous Epithelial Cell Urine 0-2 0-2 /HPF Bacteria Urine None Seen None Seen Hyaline Casts Urine 0-2 0-2 /LPF MM tomosynthesis screening B I Reviewed date:09/28/2023 12:48:04 PM Interpretation: Performing Lab: Notes/Report: [facility] [address] [place] [address] Mammography Report Signed Patient: Vanessa Spivey MR#: [id number] : 1960 Acct:[id number] Age/Sex: 63 / F ADM Date: 09/25/23 Loc: HO.MAMMO Attending Dr: Melecio Flores MD Ordering Physician: Melecio Flores MD Results: 1Ne gative Date of Service: 09/25/23 Follow Up: 1 Year From Orig inal Mammogram Procedure(s): MM tomosynthesis screening BI Accession Number(s): [id number] cc: Melecio Flores MD EXAMINATION: MM SCREENING DIGITAL BREAST TOMOSYNTHESIS, BILATERAL CLINICAL INFORMATION: Screening. Asymptomatic. 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 COMPARISON: Mammography: This study is compared with prior exams dating back to 2019. TECHNIQUE: Digital breast tomosynthesis is performed in both the craniocaudal and mediolateral oblique views along with computer-aided detection (CAD). Synthesized 2D images are generated from the tomosynthesis. FINDINGS: There are scattered areas of fibroglandular density (ACR BI-RADS breast composition Category b). There are no significant masses, abnormal calcifications, or other abnormalities. MM/MM tomosynthesis screening BI IMPRESSION: No mammographic evidence of malignancy. ASSESSMENT: BI-RADS BI-RADS 1 - Negative RECOMMENDATION: Routine annual mammography screening. 1 year F/U This examination should not preclude the clinical evaluation of a suspicious palpable abnormality. This patient's information was entered into a reminder system with a target due date for their next mammogram. Dictated By: Carolyn Toure MD Signed By: <Electronically signed by Carolyn Toure MD in OV> 09/27/23 1353 DD/ 1026 TD/TT: Pension Consultant: Occult Blood, Stool, Guaiac Reviewed date:11/11/2023 11:16:27 AM Interpretation:Negative Performing Lab: Notes/Report: Negative Occult Blood, Stool, Guaiac Neg REASON FOR REFERRAL No Information MEDICATIONS Medication SIG (Take, Route, Frequency, Duration) Notes Start Date End Date Status ProAir HFA 108 (90 Base) MCG/ACT 2 puffs as needed Inhalation every 6 hrs for 30 days 03/30/2019 Active Ibuprofen 800 MG 1 tablet with food o r milk Orally Three times a day for 10 days 03/29/2017 Not-Taking Albuterol Sulfate HFA 108 (90 Base) MCG/ACT 1 puff as needed Inhalation every 4 hrs 02/04/2021 Active Molnupiravir 200 MG 4 capsules Orally ev patricia 12 hrs for 5 day(s) 10/10/2021 Not-Taking Vitamin D3 1000 UNIT 1 tablet Orally Onc e a day 07/05/2018 Active Vitamin B12 3000 MCG as directed Sublingual 2019 Active IMMUNIZATIONS Vaccine Route Administration Date Status Comme nts Vitamin B12 IM Intramuscular 06/15/2013 Administered Flu Vaccine Unknown 03/14/2014 Administered [facility] Flu Vaccine Unknown 03/12/2015 Administered [facility] Fluarix Quadrivalent Unknown 03/20/2016 Administered [facility] Fluarix Quadrivalent Unknown 03/08/2017 Administered [facility] TDaP Unknown 09/22/2012 Administered [facility] Fluarix Quadrivalent Unknown 03/15/2018 Administered [facility] Fluarix Quadrivalent Unknown 04/10/2019 Administered pt was given the vaccine at work. Tetanus Unknown 09/22/2012 Administered PPSV23 (Pnemovax) IM Intramuscular 12/26/2019 Administered SARS-COV-2 Pfizer Unknown 05/23/2020 Administered SARS-COV-2 Pfizer Unknown 06/27/2020 Administered SARS-COV-2 Pfizer Unknown 03/26/2021 Administered Tetanus Unknown 09/22/2012 Pending SOCIAL HISTORY Tobacco Use: Social History Observation [...] 11-20 How soon after you wake up d o you smoke your first cigarette? 6-30 minutes Are you interested in quitting? Thinking about q uitting Additional Findings: Tobacco User Curren t cigarette smoker, not currently using another form of tobacco Alcohol Screen Question Answer Notes Did you have a drink containing alcohol in the p ast year? No Points 0 Interpretation Negative PROBLEMS Problem Type ICD Code Onset Dates Problem Status W/U Status Risk SNOMED Code Notes Problem hearing loss, unspecified (389.10) Active confirmed Hearing loss (03194895) Problem Actinic keratosis (702.0) Active confirmed Actinic keratos is (612111) Problem Concussion with no loss of consciousness (850.0) Active confirmed Concussion with no loss of consciousness (41225885) Problem Lymphocytosis (D72.820) Active confirmed Lymphocytosis (48271690) Problem Vitamin D deficiency (E55.9) Active confirmed 50912187 Problem Diverticulitis (K57.92) Active confirmed 875117067 Problem Paroxysmal atrial fibrillation (I48.0) Active confirmed 428922005 Problem Smoker unmotivated to quit (F17.210) Active confirmed 40597621 Problem Vitamin B12 deficiency (E53.8) Active confirmed 427735531 Problem Current smoker (F17.200) Active confirmed 07645023 Problem Abnormal mammogram (R92.8) Active confirmed 719402446 Problem Elevated LDL cholesterol level (E78.00) Active confirmed 953740895 Problem Hematuria, unspecified type (R31.9) Active confirmed 22613975 Problem Osteopenia determined by x-ray (M85.80) Active confirmed 359491720 Problem Moderate persistent asthmatic bronchitis with acute exacerbation (J45.41) Active confirmed 871066248121200 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 72830699 VITAL SIGNS Blood pressure diastolic 70 mm Hg 11/05/2023 lisa ght is down 2 pounds since 02-22-23 Height 63 in 11/05/2023 weight is down 2 pounds since 02-22-23 Blood pressure systolic 122 mm Hg 11/05/2023 weig ht is down 2 pounds since 02-22-23 Weight 143 lbs 11/05/2023 weight is down 2 pounds since 02-22-23 BMI 25.33 kg/m2 11/05/2023 weight is down 2 pounds since 02-22-23 Encounters Encounter Location Date Provider Diagnosis Melecio Flores MD [address] [place] [id number] 11/05/2023 Melecio Flores Moderate persistent asthmatic bronchitis with acute exacerbation J45.41 ; Family hx of colon cancer Z80.0 ; Current smoker F17.200 ; Abnormal mammogram R92.8 ; Vitamin D deficiency E55.9 ; Vitamin B12 deficiency E53.8 ; Lymphocytosis D72.820 ; Colon cancer screening Z12.11 and Depression screening Z13.31 Melecio Flores MD [address] [place] [id number] 09/21/2023 Melecio Flores Blood tests for routine general physical examination Z00.00 ; Vitamin B12 deficiency E53.8 and Lymphocytosis D72.820 Melecio Flores MD [address] [place] [id number] 11/29/2023 Melecio Flores MD [address] [place] [id number] 01/17/2024 Melecio Flores MD [address] [place], [place] [phone] 01/25/2024 Melecio Flores MD [address] [place] [id number] 02/08/2024 Melecio Flores Moderate persistent asthmatic bronchitis with acute exacerbation J45.41 ASSESSMENTS Encounter Date Diagnosis Assessment Notes Treatment Notes Treatment Clinical Notes 11/05/2023 Moderate persistent asthmatic bronchitis with acute exacerbation (ICD-10 - J45.41) stable, will continue current regiment 11/05/2023 Family hx of colon cancer (ICD-10 - Z80.0) due for colonoscopy this year. she will call dr harrison 09/21/2023 Blood tests for routine general physical examination (ICD-10 - Z00.00) 02/08/2024 Moderate persistent asthmatic bronchitis with acute exacerbation (ICD-10 - J45.41) 11/05/2023 Current smoker (ICD-10 - F17.200) referral to lung cancer screening/ REFERRAL WILL BE FAXED TO [facility] REFERRAL WILL BE COMPLETED AND FAXED TO [facility] 09/21/2023 Vitamin B12 deficiency (ICD-10 - E53.8) 11/05/2023 Abnormal mammogram (ICD-10 - R92.8) THE ORDER FOR THE MRI IS IN [facility]URE [facility]OLDER, DUE END DECEMBER 2023 09/21/2023 Lymphocytosis (ICD-10 - D72.820) 11/05/2023 Vitamin D deficiency (ICD-10 - E55.9) stable, will continue current regiment 11/05/2023 Vitamin B12 deficiency (ICD-10 - E53.8) stable, will continue current regiment 11/05/2023 Lymphocytosis (ICD-10 - D72.820) resolved, stable, will continue to monitor 11/05/2023 Colon cancer screening (ICD-10 - Z12.11) guaiac negative 11/05/2023 Depression screening (ICD-10 - Z13.31) negative screen PLAN OF TREATMENT Pending Test Test Name Order Date Electrocardiogram (EKG) 04/15/2018 CT ABD & PELVIS WITH CONTRAST 02/22/2023 XR CHEST 2 VIEW PA & LAT 10/16/2021 XR CHEST 2 VIEW PA & LAT 02/04/2021 [facility] 05/06/20 15 MR breast BI wo/w con 07/28/2022 MR breast BI wo/w con 01/01/2023 MR breast BI wo/w con 08/29/2021 MR breast BI wo/w con 11/05/2023 Future Test Test Name Order Date BONE DENSITY DEXA 09/03/2021 Next Appt Details Provider Name:Melecio Recinos ier, 10/31/2024 07:15:00 AM, [address], [address], [place], [place], [phone], Provider Name:Melecio Recinos ier, 11/07/2024 02:30:00 PM, [address], [address], [place], [place], [phone], Insurance Providers Payer Name Payer Address Payer Phone Subscriber Number Group Number Insured Name Patient Relationship to Insured Coverage Start Date Coverage End Date MEDICARE NHIC [address] [place] [address] [id number] Vanessa Spivey Self - patient is the insured [facility] [address] [place] [address] [id number] Vanessa Spivey Self - patient is the insured MEDICAL (GENERAL) HISTORY Medical History History ICD Code MAMMO done 05/20/13. had biopsy last rock[facility] is followed by dr daley Colonoscopy 07/14/13,Dr. Becker ord brother had colon ca; repeat colonoscopy done 01/11/[address] Harrison - repeat 5 years Cysto W/U Negative 02/2015 w/Dr. Kurtis jon had total hysterectomy and salpingo ooph erectomy 08/03/17 bone density - needs repeat in 2 020 Surgical History Surgery Date(Month/Year) Hysterectomy 2004 Needle Biopsy Rt Breast - Dr. Bridges 1 07/2014
[2024-06-13 10:34] VITALS: BMI 25.6
[2024-06-13 10:36] VITALS: BP 120/65; PULSE 71; RESP 16; TEMP 36.8; O2SAT 98
[2024-06-13] MEDS: Lactated Ringers 1,000 ML 100 ML IVCONT (10:59)
--- NOTE | 2024-06-13 11:19 | MHC.SHP ---
Pre-Procedural Eval Section A - 24 Hr Update-Section A only Date of Service: 06/13/24 Section B - Complete if H&P > 30 days Chief Complaint: screening Details of Present Illness: see H&P no changes Relevant Family History (Specify if Yes): No Relevant Social History: None Present Medications: see Short Stay Collaborative assessment Medical History: No relevant PMH History of Previous Operations: No relevant previous surgery Allergies: Allergies Allergy/AdvReac Type Severity Reaction Status Date / Time NARCOTICS Allergy Intermediate NAUSEA Uncoded 06/13/24 10:33 Review of Systems Sugical H&P ROS: Negative: Constitution, Cardiovascular, Respiratory, Neurological, Psychiatric, Hem-Onc, Allergic/Immunologic, Gastrointestinal, Genitourinary, Musculoskeletal, Integumentary, Endocrine and Eyes/Ears/Nose/Throat Exam Surgical H&P Exam: Normal: HEENT, Normal: Heart, Normal: Lungs, Normal: Extremities, Normal: Abdomen, Normal: Skin and Normal: Neurological Plan Diagnosis/Plan: Unchanged I have reviewed the history and physical and performed a pertinent physical examination on my patient. No changes have occurred unless specified. Time Spent With Patient Time: Total time managing care of this patient today ____ minutes.
[2024-06-13 11:45] VITALS: BP 98/50; PULSE 78; RESP 16; TEMP 36.3; O2SAT 97
[2024-06-13 12:00] VITALS: BP 131/58; PULSE 70; RESP 18; TEMP 36.6; O2SAT 98
--- NOTE | 2024-06-13 12:06 | OP_ITS ---
DATE OF SERVICE: 06/13/2024 SURGEON: Mitchell Lane MD INDICATIONS: Colon cancer screening and family history of colon cancer. PREOPERATIVE DIAGNOSIS: POSTOPERATIVE DIAGNOSIS: PROCEDURE PERFORMED: Colonoscopy to the terminal ilium. ESTIMATED BLOOD LOSS: COMPLICATIONS: ANESTHESIA: Monitored anesthesia care. ASSISTANTS: SPECIMENS: DESCRIPTION OF PROCEDURE: A history and physical was performed. The risks and benefits of the procedure were explained to the patient and informed consent was obtained. The patient was placed in the left lateral decubitus position. A digital rectal exam was performed and was found to be normal. The Olympus pediatric video colonoscope was introduced into the rectum and advanced to the cecum. The cecum was identified by transillumination, palpation, and identification of ileocecal valve. Examination was performed. The scope was removed. She tolerated the procedure well and was returned to the recovery area in stable condition. FINDINGS: The terminal ileum was examined and appeared normal. The visualized colonic mucosa was normal. The quality of the prep was good. There was moderate sigmoid diverticulosis. Several hyperplastic polyps were identified in the rectum and were not biopsied. No concerning lesions were identified. Retroflexed examination showed internal hemorrhoids. IMPRESSION: Normal colonoscopy. RECOMMENDATION: 1. Follow up as needed. 2. Repeat colonoscopy in 5 years for family history of colon cancer. MD YAEL Briggs/DAYRON / [id number]
== END 2024-06-13 12:22 | disposition home or self-care (01) ==
PROVIDERS: PCP Internal Medicine; Visit Provider Internal Medicine Gastroenterology
PROC: 0DJD8ZZ Inspection of Lower Intestinal Tract, Via Natural or Artificial Opening Endoscopic (ICD-10-PCS; CPT 45378; principal; 2024-06-13 11:50)
DX: Z12.11 Encounter for screening for malignant neoplasm of colon (principal); Z80.0 Family history of malignant neoplasm of digestive organs; K62.1 Rectal polyp; K57.30 Diverticulosis of large intestine without perforation or abscess without bleeding; K64.8 Other hemorrhoids; R19.7 Diarrhea, unspecified; I48.0 Paroxysmal atrial fibrillation; Z79.899 Other long term (current) drug therapy; Z98.890 Other specified postprocedural states; F17.210 Nicotine dependence, cigarettes, uncomplicated
CPT/HCPCS: G0105; J2704

== ENCOUNTER 2024-10-10 12:27 | Outpatient (REF) | payer MEDICARE, SELFPAY ==
--- OUTSIDE RECORDS SUMMARY | 2024-10-10 13:44 | XMS_ITS ---
Author Organization [facility] Address [address] [place] [address] Care Team Providers Care Pole Classifier Name Role Phone Sandra THORNTON, Melecio Primary Care Provider Mitchell Payton Jr REASON FOR VISIT Patient presents today for a colon screening Encounters Encounter Location Date Provider Diagnosis [facility] [address] Suite [facility] [place] [address] 02/25/[address] Jr Plan Of Treatment No Information Progress Notes * ELHAM SEGOVIA EDOB: (64 yo F)Acc No.[id number]:02/25/2024 Progress Notes Patient:?HEATHER SEGOVIA Provider:?Mitchell Lane MD :1960???Age:63 Y???Sex:Female D ate:02/25/2024 Address:[address], [place] Pcp:Melecio Flores MD Subjective: * Chief Complaints: * ???1. Patient presents today for a colon screening. * Medical History:? Objective: * Vitals:? Assessment: Plan: * Treatment: * * The named appointment provid er may or may not be the originator of this progress note, and it is not deemed complete until electronically signed by the appointment provider. Sign off status: Pending * Provider:?Mitchell Lane MD Date:?0 02/25/2024 Generated for Tiai denise/Ronnie/eTransmitting on:?10/10/2024 01:44 PM EDT
--- OUTSIDE RECORDS SUMMARY | 2024-10-10 13:44 | XMS_ITS ---
Author Organization [facility] Address [address] [place] [address] Care Team Providers Care Project Drilling Engineer Name Role Phone Sandra THORNTON, Melecio Primary Care Provider Mitchell Payton Jr Unavailable [phone] REASON FOR VISIT screening Encounters Encounter Location Date Provider Diagnosis [facility] [address], [place] [phone] 06/13/[address] Jr Colon cancer screening Z12.11 and Family history of colon cancer Z80.0 Assessments Encounter Date Diagnosis (ICD Code) Assessment Notes Treatment Notes Treatment Clinical Notes Section Notes 06/13/2024 Colon cancer screening (ICD-10 - Z12.11) 06/13/2024 Family history of colon cancer (ICD-10 - Z80.0) Plan Of Treatment No Information Progress Notes * ELHAM SEGOVIA EDOB: (64 yo F)Acc No.[id number]:06/13/2024 COLON WITH MAC Patient:?HEATHER SEGOVIA Provider:?Mitchell Lane MD :1960???Age:63 Y???Sex:Female D ate:06/13/2024 Address:[address], [place] Pcp:Melecio Flores MD Subjective: * Chief Complaints: * ???1. Screening. * Medical History:? Objective: * Vitals:? Assessment: * Assessment: 1.?Colon cancer screening - Z12.11 (Primary)???2.?Family history of colon cancer - Z80.0??? Plan: * Treatment: * Procedure Codes:?G0105 COLOR EC CANCR SCR; COLNSCPY HI RISK, 0529F INTRVL 3+YRS PTS CLNSCP DOCD, 0528F RCMND FLW-UP 10 YRS DOCD, Modifiers: 1P * * The named appointment provid er may or may not be the originator of this progress note, and it is not deemed complete until electronically signed by the appointment provider. Sign off status: Pending * Provider:?Mitchell Lane MD Date:?0 06/13/2024 Generated for Krysta walker/Ronnie/eTransmitting on:?10/10/2024 01:44 PM EDT
--- OUTSIDE RECORDS SUMMARY | 2024-10-10 13:44 | XMS_ITS ---
Author Organization [facility] Address [address] [place] [address] Care Team Providers Care Veneer Lathe Operator Name Role Phone Sandra THORNTON, Melecio Primary Care Provider Mitchell Payton Jr Unavailable Allergies Allergen (clinical drug ingredient) Drug/Non Drug Allergy documented on EMR Reaction Allergy Type Onset Date Status narcotics (uncoded) sensitivity Allergy Active REASON FOR VISIT Patient presents today for a colon screeniing Medications Medication SIG (Take, Route, Frequency, Duration) Notes Start Date End Date Status Albuterol Sulfate HFA 108 (90 Base) MCG/ACT 1 puff as needed Inhalation every 4 hrs as needed Active MiraLax (colon prep) 17 GM/SCOOP mixed with Gatorade or Crystal Light Orally begin at 5:00 p.m. the day before the procedure for 1 day 05/03/2024 Active Immunizations Vaccine Route Administration Date Status Comme nts Influenza Unknown 05/03/2024 Refused Social History Tobacco Use: Social History Observation Description Date Details (start date - stop date) Current Smoker NA - NA Tobacco Use/Smoking Question Answer Notes Patient is a current smoker How often do you smoke cigarettes? every day How many cigarettes a day do you smoke? 11-20 How soon after you wake up do you smoke your fir st cigarette? 6-30 minutes Are you interested in quitting? Not ready to lorie t Vital Signs Temperature 97.5 degrees Fahrenheit 05/03/20 24 Blood pressure systolic 000 mm Hg 05/03/20 24 Blood pressure diastolic 00 mm Hg 024 Height 61.5 in 05/03/2024 Weight 139 lb 6 oz lbs 05/03/2024 BMI 25.91 kg/m2 05/03/2024 Encounters Encounter Location Date Provider Diagnosis [facility] [address] [place] [address] 05/03/[address] Jr Colon cancer screening Z12.11 Assessments Encounter Date Diagnosis (ICD Code) Assessment Notes Treatment Notes Treatment Clinical Notes Section Notes 05/03/2024 Colon cancer screening (ICD-10 - Z12.11) Colonoscopy material was printed We discussed colonoscopy today. We discussed risks and benefits of the procedure today. She understands these and agrees to proceed. This will be scheduled at her convenience. Plan Of Treatment Medication Medication Name Sig Start Date Stop Date Notes MiraLax (colon prep) 17 GM/SCOOP mixed with Gatorade or Crystal Light Orally begin at 5:00 p.m. the day before the procedure for 1 day 05/03/2024 Treatment Notes Assessment Notes Colon cancer screening Colonoscopy mater ial was printed Future Test Test Name Order Date COLONOSCOPY 05/03/2024 Next Appt Details Follow Up: 1 Year, Reason: Progress Notes * ELHAM SEGOVIA EDOB: (63 yo F)Acc No.[id number]:05/03/2024 Progress Notes Patient:?HEATHER SEGOVIA Tyson Provider:?Mitchell Lane MD :1960???Age:63 Y???Sex:Female D ate:05/03/2024 Address:[address] [place] [address] [address] [id number] Pcp:Melecio Florse MD Subjective: * Chief Complaints: * ???1. Patient presents today for a colon screeniing. * HPI: ???New symptom(s):? Viri is a pleasant 63-year-old woman seen today for her preoperative colonoscopy visit. She has no rectal bleeding, abdominal or rectal pain. She does have intermittent diarrhea. She has a family history of colon cancer in her brother last underwent colonoscopy in 2019. She is due for followup. * ROS:?General/Constitutional:?Change in appetite?denies.?Fatigue?denies.?ENT:?Patient denies?difficulty swallowing.?Respiratory:?Patient denies?shortness of breath.?Cardiovascular:?Patient denies?chest pain.?Gastrointestinal:?Comments?See HPI for details.?Genitourinary:?Difficulty urinating?denies.?Incontinence?denies.?Musculoskeletal:?Patient denies?muscle aches.?Skin:?Patient denies?pruritis.?Neurologic:?Patient denies?low back pain.?Psychiatric:?Patient denies?mental or physical abuse.? * Medical History:?Colonoscopy 01/23, diverticulosis and small hemorrhoids, five- year followup for family history, Paroxysmal atrial fibrillation. * Surgical History:?hysterecto my , ulnar transposition , tonsillectomy , carpal tunnel release . * Family History:?Father: dece ased.?Mother: .?Siblings: , brother with colon cancer at age 56.? No family history of liver cancer. Patient's brother from colon cancer. * Social History:?Tobacco Use:?Tobacco Use/Smoking?Patient is a?current smoker,?How often do you smoke cigarettes??every day,?How many cigarettes a day do you smoke??11-20,?How soon after you wake up do you smoke your first cigarette??6-30 minutes,?Are you interested in quitting??Not ready to quit.?Drugs/Alcohol:?Alcohol Screen?Points: 1, Interpretation: Negative.?Miscellaneous:?Marital status: . Occupation: economic specialist. * Medications:?Taking Albutero l Sulfate HFA 108 (90 Base) MCG/ACT Aerosol Solution 1 puff as needed Inhalation every 4 hrs, Notes: as needed, Discontinued Metoprolol Succinate ER 25 MG Tablet Extended Release 24 Hour TAKE 1 TABLET BY MOUTH EVERY DAY Oral , Discontinued MiraLax (colon prep) 8.3 ounce ((238) grams mixed with Gatorade or Crystal Light orally begin at 5:00 p.m. the day before the procedure, Medication List reviewed and reconciled with the patient * Allergies:?Narcotics: Sensit ivity. Objective: * Vitals:?Wt: 139 lb 6 oz, Ht: 61.5 in, BMI:25.91 Index, BP: 000/00 mm Hg, Temp: 97.5. * Examination: ???General Examination: ?GENERAL APPEARANCE:?in no acute distress.?HEAD:?normocephalic.?EYES:?sclera non-icteric.?ORAL CAVITY:?mucosa moist.?NECK/THYROID:?no lymphadenopathy.?SKIN:?anicteric.?HEART:?S1, S2 normal, no murmurs.?LUNGS:?clear to auscultation bilaterally.?CHEST:?normal shape and expansion.?ABDOMEN:?soft, nontender, nondistended, bowel sounds present, no organomegaly .?EXTREMITIES:?no clubbing, cyanosis, or edema.?PSYCH:?cognitive function intact.? Assessment: * Assessment: 1.?Colon cancer screening - Z12.11 (Primary)? We discussed colonoscopy tod razia. We discussed risks and benefits of the procedure today. She understands these and agrees to proceed. This will be scheduled at her convenience. Plan: * Treatment: * Immunizations:? Influenza (Not administered - Refused: Patient decision) * Preventive Medicine:? ??Counseling:?Care goal follow-up plan:?Above Normal BMI Follow-up?Giving encouragement to exercise,?BMI management provided?Yes.? ??Urinary Incontinence:?Urinary Incontinence?Assessment:?Absent,?Plan of care documented:?No, reason not specified.? ??Screenings:?Fall Risk Screening?Fall Risk Assessment:?No falls in the past year,?Screening:?No falls in the past year,?Assessment:?Not performed, no reason specified,?Plan of Care:?Not documented, no reason specified.? * Follow Up:?1 Year * * Sign off status: Completed true * Provider:?Mitchell Lane MD Date:?07/03/2023 Generated for Printi denise/Ronnie/eTransmitting on:?10/10/2024 01:44 PM EDT History and Physical Notes * HPI (History of Present Illness) Category Sub-Category Detail Notes Category Not es New symptom(s) Viri is a p leasant 63-year-old woman seen today for her preoperative colonoscopy visit. She has no rectal bleeding, abdominal or rectal pain. She does have intermittent diarrhea. She has a family history of colon cancer in her brother last underwent colonoscopy in 2019. She is due for followup. Examination Category Sub-Category Detail Notes Category Not es General Examination GENERAL APPEARANCE: in no acute di stress HEAD: normocephalic EYES: sclera non-icteric NECK/THYROID: no lymphadenopathy HEART: S1, S2 normal, no mu rmurs CHEST: normal shape and exp ansion LUNGS: clear to auscultatio n bilaterally ABDOMEN: soft, nontender, non distended, bowel sounds present, no organomegaly SKIN: anicteric EXTREMITIES: no clubbing, cyanosi s, or edema PSYCH: cognitive function i ntact ORAL CAVITY: mucosa moist
--- OUTSIDE RECORDS SUMMARY | 2024-10-10 13:45 | XMS_ITS | Patient Health Record ---
Author Organization Melecio Flores MD Address [address] [place] [phone] Care Team Providers Care Manufacturing Sales Representative Name Role Phone Melecio Flores Primary Care Provider Allergies No Known Allergies Results Component Value Reference Range Notes Occult Blood, Stool, Guaiac Reviewed date:11/11/2023 11:16:27 AM Interpretation:Negative Performing Lab: Notes/Report: Negative Occult Blood, Stool, Guaiac Neg Reason For Referral No Information Medications Medication SIG (Take, Route, Frequency, Duration) [...] 3000 MCG as directed Sublingual 2019 Active Immunizations Vaccine Route Administration Date Status [...] Unknown 03/26/2021 Administered Tetanus Unknown 09/22/2012 Pending Social History Tobacco Use: Social History Observation [...] ast year? No Points 0 Interpretation Negative Problems Problem Type SNOMED Code ICD Code Onset Dates Problem Status W/U Status Risk Notes Problem Hearing loss (61693405) hearing loss, unspecified (389.10) Active confirmed Problem Actinic keratosis (371901) Actinic keratosis (702.0) Active confirmed Problem Concussion with no loss of consciousness (01529117) Concussion with no loss of consciousness (850.0) Active confirmed Problem Lymphocytosis (31628357) Lymphocytosis (D72.820) Active confirmed Problem 83932881 Vitamin D deficiency (E55.9) Active confirmed Problem 367518444 Diverticulitis (K57.92) Active confirmed Problem 150262249 Paroxysmal atria l fibrillation (I48.0) Active confirmed Problem 49307904 Smoker unmotivated to quit (F17.210) Active confirmed Problem 846350611 Vitamin B12 deficiency (E53.8) Active confirmed Problem 91520282 Current smoker (F17.200) Active confirmed Problem 232009748 Abnormal mammogram (R92.8) Active confirmed Problem 276794379 Elevated LDL cholesterol level (E78.00) Active confirmed Problem 58352768 Hematuria, unspecified type (R31.9) Active confirmed Problem 820619463 Osteopenia determined by x-ray (M85.80) Active confirmed Problem 371550663339466 Moderate persistent asthmatic bronchitis with acute exacerbation (J45.41) Active confirmed Problem 03285491 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 Vital Signs Blood pressure diastolic 70 mm Hg 11/05/2023 [...] Diagnosis Melecio Flores MD [address] [place] [phone] 11/05/2023 Melecio Flores Moderate persistent asthmatic bronchitis with acute exacerbation J45.41 ; Family hx of colon cancer Z80.0 ; Current smoker F17.200 ; Abnormal mammogram R92.8 ; Vitamin D deficiency E55.9 ; Vitamin B12 deficiency E53.8 ; Lymphocytosis D72.820 ; Colon cancer screening Z12.11 and Depression screening Z13.31 Melecio Flores MD [address] [place] [phone] 01/25/2024 Melecio Flores MD [address] [place] [id number] 11/29/2023 Melecio Flores MD [address] [place], [place] [phone] 01/17/2024 Melecio Flores MD [address] [place] [phone] 02/08/2024 Melecio Flores Moderate persistent asthmatic bronchitis with acute exacerbation J45.41 Assessments Encounter Date Diagnosis (ICD Code) Assessment Notes Treatment Notes Treatment Clinical Notes Section Notes 11/05/2023 Moderate persistent asthmatic bronchitis with acute exacerbation (ICD-10 - J45.41) stable, will continue current regiment 11/05/2023 Family hx of colon cancer (ICD-10 - Z80.0) due for colonoscopy this year. she will call dr harrison 02/08/2024 Moderate persistent asthmatic bronchitis with acute exacerbation (ICD-10 - J45.41) 11/05/2023 Current smoker (ICD-10 - F17.200) referral to lung cancer screening/ REFERRAL WILL BE FAXED TO [facility] REFERRAL WILL BE COMPLETED AND FAXED TO [facility] 11/05/2023 Abnormal mammogram (ICD-10 - R92.8) THE ORDER FOR THE MRI IS IN [employer] FUTURE FOLDER, DUE END DECEMBER 2023 11/05/2023 Vitamin D deficiency (ICD-10 - E55.9) stable, will continue current regiment 11/05/2023 Vitamin B12 deficiency (ICD-10 - E53.8) stable, will continue current regiment 11/05/2023 Lymphocytosis (ICD-10 - D72.820) resolved, stable, will continue to monitor 11/05/2023 Colon cancer screening (ICD-10 - Z12.11) guaiac negative 11/05/2023 Depression screening (ICD-10 - Z13.31) negative screen Plan Of Treatment Pending Test Test Name Order Date Electrocardiogram (EKG) 04/15/2018 CT ABD & PELVIS WITH CONTRAST 02/22/2023 XR CHEST 2 VIEW PA & LAT 02/04/2021 XR CHEST 2 VIEW PA & LAT 10/16/2021 [facility] 05/06/20 15 MR breast BI wo/w con 01/01/2023 MR breast BI wo/w con 11/05/2023 MR breast BI wo/w con 08/29/2021 MR breast BI wo/w con 07/28/2022 Future Test Test Name Order Date BONE DENSITY DEXA 09/03/2021 Next Appt Details Provider Name:Melecio Recinos ier, 10/31/2024 07:15:00 AM, [address] [facility] [address], [place], [place], [phone], Provider Name:Melecio Recinos ier, 11/07/2024 02:30:00 PM, [address], [address], [place], [place], [phone], Insurance Providers Payer Name Payer Address Payer Phone Subscriber Number Group Number Insured Name Patient Relationship to Insured Coverage Start Date Coverage End Date MEDICARE NHIC [address] [place] [address] [id number] Vanessa Spivey Self - patient is the insured [facility] [address] [place] [address] [id number] Vanessa Spivey Self - patient is the insured Medical (General) History Medical History History ICD Code MAMMO done 05/20/13. had biopsy last rock[place] [facility] is followed by dr daley Colonoscopy 07/14/13,Dr. Becker ord brother had colon ca; repeat colonoscopy done 01/11/[address] Harrison - repeat 5 years06/16/24 Colonoscopy repeat 5y Cysto W/U Negative 02/2015 w/Dr. Kurtis jon had total hysterectomy and salpingo ooph erectomy 08/03/17 bone density - needs repeat in 2 020 Surgical History Surgery Date(Month/Year) Hysterectomy 2004 Needle Biopsy Rt Breast - Dr. Bridges 1 07/2014
--- OUTSIDE RECORDS SUMMARY | 2024-10-10 13:45 | XMS_ITS ---
Author Organization Melecio Flores MD Address [address] [facility] [address] [place] [phone] Care Team Providers Care Laundry Technician Name Role Phone Melecio Flores Primary Care Provider REASON FOR VISIT BILL DENIED Encounters Encounter Location Date Provider Diagnosis Melecio Flores MD [address] [facility] [address] [place] [phone] 01/17/2024 Melecio Flores Plan Of Treatment Next Appt Details Provider Name:Melecio soria, 10/31/2024 07:15:00 AM, [address] [place] [address], [address] [place] [address], [phone], Provider Name:Melecio soria, 11/07/2024 02:30:00 PM, [address] [place] [address], [address], [phone], Progress Notes * Vanessa SEGOVIADOB:[birth year] (63 yo F)Acc No.[id number]:01/17/2024 Patient:?Patric Anne lawrence :1960???Age:63 Y???Sex:Female Address:[address] [place] [address] [place] [address] * true * Date:? Generated for Tiai denise/Ronnie/eTransmitting on:?10/10/2024 01:45 PM EDT
--- OUTSIDE RECORDS SUMMARY | 2024-10-10 13:45 | XMS_ITS ---
Author Organization Melecio Flores MD Address [address] [place] [phone] Care Team Providers Care Drafter Engineering Name Role Phone Melecio Flores Primary Care Provider REASON FOR VISIT RF Pro Air Medications Medication SIG (Take, Route, Frequency, Duration) Notes Start Date End Date Status ProAir HFA 108 (90 Base) MCG/ACT 2 puffs as needed Inhalation every 6 hrs for 30 days 03/30/2019 Active Encounters Encounter Location Date Provider Diagnosis Melecio Flores MD [address] [place] [phone] 02/08/2024 Melecio Flores Moderate persistent asthmatic bronchitis with acute exacerbation J45.41 Assessments Encounter Date Diagnosis (ICD Code) Assessment Notes Treatment Notes Treatment Clinical Notes Section Notes 02/08/2024 Moderate persistent asthmatic bronchitis with acute exacerbation (ICD-10 - J45.41) Plan Of Treatment Medication Medication Name Sig Start Date Stop Date Notes ProAir HFA 108 (90 Base) MCG/ACT 2 puffs as needed Inhalation every 6 hrs for 30 days 03/30/2019 Next Appt Details Provider Name:Melecio Recinos lisetter, 10/31/2024 07:15:00 AM, [address] [place] [address], [address], [place], [place], [phone], Provider Name:Melecio Recinos ier, 11/07/2024 02:30:00 PM, [address] [place] [address], [address], [place], [place], [phone], Progress Notes * Vanessa SEGOVIADOB:[birth year] (63 yo F)Acc No.[id number]:02/08/2024 Patient:?Anne Segovia :1960???Age:63 Y???Sex:Female Address: [address], [place] [address] * Refills? Refill ProAir HFA Aerosol Solution, 108 (90 Base) MCG/ACT, Inhalation, 1, 2 puffs as needed, every 6 hrs, 30 days, Refills=3 * true * Date:? Generated for Krysta walker/Ronnie/eTransmitting on:?10/10/2024 01:45 PM EDT
--- OUTSIDE RECORDS SUMMARY | 2024-10-10 13:45 | XMS_ITS ---
Author Organization Melecio Flores MD Address [address] [facility] [address] [place] [phone] Care Team Providers Care Distribution Estimator Name Role Phone Melecio Flores Primary Care Provider [phone] REASON FOR VISIT MRI bilateral breast Encounters Encounter Location Date Provider Diagnosis Melecio Flores MD [address] [facility] [address] [place] [phone] 01/25/2024 Melecio Flores Plan Of Treatment Next Appt Details Provider Name:Melecio soria, 10/31/2024 07:15:00 AM, [address] [place] [address], [address], [phone], Provider Name:Melecio soria, 11/07/2024 02:30:00 PM, [address] [place] [address], [address], [phone], Progress Notes * Vanessa SEGOVIADOB:[birth year] (64 yo F)Acc No.[id number]:01/25/2024 Patient:?Anne SEGOVIA :1960???Age:63 Y???Sex:Female Address:[address] [place] [address] [place] [address] * * Date:?
--- OUTSIDE RECORDS SUMMARY | 2024-10-10 13:45 | XMS_ITS | Patient Health Record ---
Author Organization [facility] Address [address] [place] [address] Care Team Providers Care Mysql Database Administrator Name Role Phone Sandra THORNTON, Melecio Primary Care Provider Mitchell Payton Jr Unavailable Allergies Allergen (clinical drug ingredient) Drug/Non Drug Allergy documented on EMR Reaction Allergy Type Onset Date Status narcotics (uncoded) sensitivity Allergy Active Reason For Referral No Information Medications Medication [...] Unknown 03/07/2018 Administered Influenza Unknown 05/03/2024 Refused Social History Tobacco [...] in quitting? Not ready to lorie t Problems Problem Type SNOMED Code ICD Code Onset Dates Problem Status W/U Status Risk Notes Problem 560815867 Colon cancer screening (Z12.11) Active confirmed Problem 912943409 Encounter for other preprocedural examination (Z01.818) Active confirmed Problem 085247475939050 Aspirin long-ter m use (Z79.82) Active confirmed Vital Signs Temperature 97.5 degrees Fahrenheit 05/03/2024 Blood pressure diastolic 00 mm Hg 05/03/2024 Height 61.5 in 05/03/2024 Blood pressure systolic 000 mm Hg 05/03/2024 Weight 139 lb 6 oz lbs 05/03/2024 BMI 25.91 kg/m2 05/03/2024 Encounters Encounter Location Date Provider Diagnosis [facility] [address] [place], [place] [phone] 06/13/[address] Colon cancer screening Z12.11 and Family history of colon cancer Z80.0 [facility] [address] [place] [address] 05/03/[address] Colon cancer screening Z12.11 Assessments Encounter Date Diagnosis (ICD Code) Assessment Notes Treatment Notes Treatment Clinical Notes Section Notes 06/13/2024 Colon cancer screening (ICD-10 - Z12.11) 06/13/2024 Family history of colon cancer (ICD-10 - Z80.0) 05/03/2024 Colon cancer screening (ICD-10 - Z12.11) Colonoscopy material was printed We discussed colonoscopy today. We discussed risks and benefits of the procedure today. She understands these and agrees to proceed. This will be scheduled at her convenience. Plan Of Treatment Future Test Test Name Order Date COLONOSCOPY 03/30/2013 COLONOSCOPY 09/29/2018 COLONOSCOPY 05/03/2024 Insurance Providers Payer Name Payer Address Payer Phone Subscriber Number Group Number Insured Name Patient Relationship to Insured Coverage Start Date Coverage End Date MEDICARE OF [place] [address] [place] [address] [id number] ELHAM SEGOVIA Self - patient is the insured [employer] [address] [place] [phone] [id number] ELHAM SEGOVIA Self - patient is the insured Medical (General) History Medical History History ICD Code Colonoscopy 01/23, diverticul osis and small hemorrhoids, five-year followup for family history Paroxysmal atrial fibrillation Surgical History Surgery Date(Month/Year) hysterectomy ulnar transposition tonsillectomy carpal tunnel release
== END 2024-10-10 12:28 | disposition home or self-care (01) ==
LOC: HO.MAMMO 12:27
PROVIDERS: Visit Provider Internal Medicine
DX: Z12.31 Encounter for screening mammogram for malignant neoplasm of breast (principal)
CPT/HCPCS: 77063; 77067

== ENCOUNTER → 2024-10-10 12:45 | Outpatient (BNV) | payer MEDICARE, SELFPAY | PROVIDERS: Visit Provider Internal Medicine | DX: Z12.31 Encounter for screening mammogram for malignant neoplasm of breast (principal) | CPT/HCPCS: 77063; 77067 ==

== ENCOUNTER 2024-10-31 10:05 | Outpatient (REF) | payer MEDICARE, SELFPAY ==
[2024-10-31 10:16] LABS: MANUAL DIFF FLAG NO
--- OUTSIDE RECORDS SUMMARY | 2024-10-31 10:55 | XMS_ITS ---
Author Organization [facility] Address [address] [place] [phone] Care Team Providers Care Hand I Tube Bender Name Role Phone Sandra THORNTON, Melecio Primary Care Provider Mitchell Payton Jr Unavailable REASON FOR VISIT screening Encounters Encounter Location Date Provider Diagnosis [facility] [address] [place], [place] [phone] 06/13/[address] Jr Colon cancer screening Z12.11 and Family history of colon cancer Z80.0 Assessments Encounter Date Diagnosis (ICD Code) Assessment Notes Treatment Notes Treatment Clinical Notes Section Notes 06/13/2024 Colon cancer screening (ICD-10 - Z12.11) 06/13/2024 Family history of colon cancer (ICD-10 - Z80.0) Plan Of Treatment No Information Progress Notes * ELHAM SEGOVIA EDOB: (64 yo F)Acc No.[id number]:06/13/2024 COLON WITH MAC Patient:?HEATHER SEGOVIA Provider:?Mitchell Lane MD :1960???Age:63 Y???Sex:Female D ate:06/13/2024 Address:[address], [id number] Pcp:Melecio Flores MD Subjective: * Chief Complaints: [...] MD Date:?0 06/13/2024 Generated for Krysta walker/Ronnie/eTransmitting on:?10/31/2024 10:54 AM EDT
[2024-10-31 11:02] LABS: Basophils Absolute Auto 0.1 X10*3/uL (0.0-0.2); Basophils Percent Auto 1.7 % (0-2); Eosinophils Absolute Auto 0.1 X10*3/uL (0.0-0.4); Eosinophils Percent Auto 2.2 % (0-4); Hematocrit 40.8 % (37.0-47.0); Hemoglobin 13.7 g/dl (12.0-16.0); Imm Gran Abs Auto 0.01 X10*3/uL (0.00-0.03); Imm Gran Pct Auto 0.2 % (0.0-0.4); Lymphocytes Absolute Auto 2.5 X10*3/uL (1.2-4.9); Lymphocytes Percent Auto 38.9 % (20-40); Mean Corpuscular HGB Conc 33.6 g/dl (31.0-35.0); Mean Corpuscular Hemoglobin 31.4 pg (27.0-33.0); Mean Corpuscular Volume 93.6 fL (80.0-98.0); Mean Platelet Volume 10.8 fL (9.4-12.3); Monocytes Absolute Auto 0.6 X10*3/uL (0.1-1.2); Monocytes Percent Auto 9.3 % (2-11); Neutrophils Percent Auto 47.7 % (45-73); Platelet Count 267 X10*3/uL (160-400); Red Blood Count 4.36 X10*6/uL (4.20-5.50); Red Cell Distribution Width 13.1 % (11.0-16.0); White Blood Count 6.4 X10*3/uL (4.8-10.8)
[2024-10-31 11:04] LABS: Appearance Urine Clear; Color Urine Yellow; Glucose Urine UA Negative (Negative); Leukocyte Esterase Urine Negative (Negative); Nitrite Urine Negative (Negative); PH 6.5 (5.0-9.0); Urine Blood Negative (Negative); Urine Ketones Negative (Negative); Urine Protein Negative (Neg-Trace)
[2024-10-31 11:08] LABS: Bacteria Urine Trace (None Seen); Hyaline Casts Urine 0-2 /LPF (0-2); RBC Urine 0-2 /HPF (0-2); WBC Urine 0-5 /HPF (0-5)
[2024-10-31 11:47] LABS: Alanine Aminotransferase 11 U/L (0-31); Alkaline Phosphatase 65 U/L (39-117); Anion Gap 10 (12-20); Aspartate Amino Transferase 19 U/L (5-31); Bilirubin Total 0.4 mg/dL (0.0-1.0); Blood Urea Nitrogen 12 mg/dL (9-16); Calcium 9.1 mg/dL (8.4-10.2); Carbon Dioxide 29 mmol/L (22-29); Chloride 108 mmol/L (96-108); Cholesterol 214 mg/dL (<200); Estimated Glomerular Filt Rate > 60; Glucose Fasting 88 mg/dL (60-99); HDL Cholesterol 55 mg/dL (>40); LDL Cholesterol Calculated 134 mg/dL (<100); Sodium 143 mmol/L (135-145); Total Protein 6.3 g/dL (6.5-8.0); Triglycerides 127 mg/dL (<150); Vitamin D 25-OH Total 63.9 ng/mL (>30)
== END 2024-10-31 10:06 | disposition home or self-care (01) ==
LOC: HO.LNP 10:05
PROVIDERS: Visit Provider Internal Medicine
DX: Z00.00 Encounter for general adult medical examination without abnormal findings (principal); E55.9 Vitamin D deficiency, unspecified; D72.820 Lymphocytosis (symptomatic); E78.00 Pure hypercholesterolemia, unspecified; E53.8 Deficiency of other specified B group vitamins
CPT/HCPCS: 80053; 80061; 81001; 82306; 85025

== ENCOUNTER 2024-11-07 15:31 | Outpatient (REF) | payer MEDICARE, SELFPAY ==
--- OUTSIDE RECORDS SUMMARY | 2024-11-07 16:55 | XMS_ITS ---
Author Organization Melecio Flores MD Address [address] [place] [phone] Care Team Providers Care Weighmaster Name Role Phone Melecio Flores Primary Care Provider Allergies No Known Allergies REASON FOR VISIT ANNUAL EXAM, needs Vitamin B12 drawn, refuses to have breast MRI done Medications Medication SIG (Take, Route, Frequency, Duration) Notes Start Date End Date Status Molnupiravir 200 MG 4 capsules Orally ev patricia 12 hrs for 5 day(s) 10/10/2021 Not-Taking Ibuprofen 800 MG 1 tablet with food o r milk Orally Three times a day for 10 days 03/29/2017 Not-Taking ProAir HFA 108 (90 Base) MCG/ACT 2 puffs as needed Inhalation every 6 hrs for 30 days 03/30/2019 Not-Taking Vitamin B12 3000 MCG as directed Sublingual 2019 Active Vitamin D3 1000 UNIT 1 tablet Orally Onc e a day 07/05/2018 Active Albuterol Sulfate HFA 108 (90 Base) MCG/ACT 1 puff as needed Inhalation every 4 hrs for 30 days 02/04/2021 Active Social History Tobacco Use: Social History Observation [...] Problem Status W/U Status Risk Notes Problem Asthma (328560084) Asthma (J45.909) Active confirmed Vital Signs Blood pressure systolic 122 mm Hg 11/08/19 25 Blood pressure diastolic 74 mm Hg 025 Height 63 in 11/07/2024 Weight 137 lbs 11/07/2024 BMI 24.27 kg/m2 11/07/2024 weight is down 6 pounds [facility] 11-05-23 Encounters Encounter Location Date Provider Diagnosis Melecio Flores MD [address] [place] [address] [address] [place], [place] [phone] 11/07/2024 Melecio Flores Vitamin B12 deficiency E53.8 ; Smoker unmotivated to quit F17.210 ; Asthma J45.909 ; Elevated LDL cholesterol level E78.00 ; Paroxysmal atrial fibrillation I48.0 ; Vitamin D deficiency E55.9 and Depression screening Z13.31 Assessments Encounter Date Diagnosis (ICD Code) Assessment Notes Treatment Notes Treatment Clinical Notes Section Notes 11/07/2024 Vitamin B12 deficiency (ICD-10 - E53.8) 11/07/2024 Smoker unmotivated to quit (ICD-10 - F17.210) 11/07/2024 Asthma (ICD-10 - J45.909) stable, will continue current regiment 11/07/2024 Elevated LDL cholesterol level (ICD-10 - E78.00) advised on diet and exercise 11/07/2024 Paroxysmal atrial fibrillation (ICD-10 - I48.0) 11/07/2024 Vitamin D deficiency (ICD-10 - E55.9) stable, will continue current regiment 11/07/2024 Depression screening (ICD-10 - Z13.31) negative screen Plan Of Treatment Medication Medication Name Sig Start Date Stop Date Notes Vitamin B12 3000 MCG as directed Sublingual 07/19/2019 Vitamin D3 1000 UNIT 1 tablet Orally Once a day 07/05/2018 Albuterol Sulfate HFA 108 (9 0 Base) MCG/ACT 1 puff as needed Inhalation every 4 hrs for 30 days 02/04/2021 Treatment Notes Assessment Notes Asthma stable, will continu e current regiment Elevated LDL cholesterol level advised o n diet and exercise Vitamin D deficiency stable, will contin ue current regiment Depression screening negative screen Pending Test Test Name Order Date Vitamin B12 11/07/2024 Next Appt Details Follow Up: 1 Year, Reason: Provider Name:Melecio soria, 11/05/2025 07:30:00 AM, [address] [place] [address], [address], [place], [place], [phone], Provider Name:Melecio soria, 11/12/2025 02:30:00 PM, [address] [place] [address], [address], [place], [place], [phone], Progress Notes * aVnessa SEGOVIADOB:[birth year] (64 yo F)Acc No.[id number]:11/07/2024 Patient:?Anne SEGOVIA Provider:?Melecio Flores MD :1960???Age:64 Y???Sex:Female D ate:11/07/2024 Address:[address], [place] Subjective: * Chief Complaints: * ???1. ANNUAL EXAM. 2. needs Vitamin B12 drawn. 3. refuses to have breast MRI done. * HPI: ???Depression Screening:?PHQ-9?Little interest or pleasure in doing things?Not at all,?Feeling down, depressed, or hopeless?Not at all,?Trouble falling or staying asleep, or sleeping too much?Not at all,?Feeling tired or having little energy?Not at all,?Poor appetite or overeating?Not at all,?Feeling bad about yourself or that you are a failure, or have let yourself or your family down?Not at all,?Trouble concentrating on things, such as reading the newspaper or watching television?Not at all,?Moving or speaking so slowly that other people could have noticed; or the opposite, being so fidgety or restless that you have been moving around a lot more than usual?Not at all,?Thoughts that you would be better off or of hurting yourself in some way?Not at all,?Total Score?0.?Interpretation and Intervention?Depression Screening Findings?Negative,?Follow-Up for Depression?: review of PHQ-9 found negative result, no follow-up needed.?Communication Needs:?Communication Needs?Does the patient have a hearing impairment?No,?Does the patient have a vision impairment??Yes,?If yes, what is the vision impairment??Glasses,?Does the patient have a cognition impairment??No.?Fall Risk:?History?Have you had any falls with injury in the past year??No,?Have you had two or more falls in the past year??No.?SDOH Questions:?SDOH Questions?In the past year have you been worried about losing housing??No,?In the past year have you or any family members you live with been unable to get any of the following when it was really needed? Check all that apply:?None.?Symptom(s):? patient is a 64 yo female here for visit with review of recent labs and follow up of chronic issues. * ROS:?General/Constitutional:?Change in appetite?denies.?Chills?denies.?Fever?denies.?Ophthalmologic:?Blurred vision?denies.?Discharge?denies.?Pain?denies.?ENT:?Decreased hearing?denies.?Sore throat?denies.?Swollen glands?denies.?Endocrine:?Cold intolerance?denies.?Excessive thirst?denies.?Heat intolerance?denies.?Weight loss?denies.?Respiratory:?Cough?denies.?Shortness of breath at rest?denies.?Shortness of breath with exertion?denies.?Wheezing?denies.?Cardiovascular:?Chest pain at rest?denies.?Chest pain with exertion?denies.?Irregular heartbeat?denies.?Shortness of breath?denies.?Gastrointestinal:?Abdominal pain?denies.?Change in bowel habits?denies.?Diarrhea?denies.?Nausea?denies.?Rectal bleeding?denies.?Vomiting?denies .?Genitourinary:?Blood in urine?denies.?Difficulty urinating?denies.?Frequent urination?denies.?Urinary incontinence?Denies.?Musculoskeletal:?Painful joints?denies.?Weakness?denies.?Skin:?Dry skin?denies.?Itching?denies.?Denies?Mole(s),? changes in moles, new moles or any lesions of concern.?Denies?Photosensitivity.?Rash?denies.?Neurologic:?Dizziness?denies.?Fainting?denies.?Headache?denies.? * Medical History:?MAMMO done 05/20/13. had biopsy last year is followed by dr daley, Colonoscopy 07/14/13,Dr. Lane brother had colon ca; repeat colonoscopy done 01/11/[address] - repeat 5 years06/16/24 Colonoscopy repeat 5y, Cysto W/U Negative 02/2015 w/Dr. Mccauley, Had total hysterectomy and salpingo oopherectomy, 08/03/17 bone density - needs repeat in 2020. * Family History:?Father: dece ased 89 yrs, CVA.?Mother: 72 yrs, diagnosed with Cancer.?1 sister(s) . 1 son(s) . .? Adrenal Cancer Mother 1 brother 61 cancer, Denies mental health/substance abuse family history, Denies mental health/substance abuse family history, No pertinent family medical history, Denies mental health/substance abuse family history. * Social History:?Tobacco Use:?Tobacco Use/Smoking?Patient is a?current smoker,?How often do you smoke cigarettes??every day,?How many cigarettes a day do you smoke??11-20,?How soon after you wake up do you smoke your first cigarette??6-30 minutes,?Are you interested in quitting??Thinking about quitting,?Additional Findings: Tobacco User?Current cigarette smoker, not currently using another form of tobacco.?Drugs/Alcohol:?Alcohol Screen?Did you have a drink containing alcohol in the past year??No,?Points?0,?Interpretation?Negative.?Miscellaneous:?Caffeine: yes, frequency:, 1-2 cups per day. Children: yes. Community involvements: yes. Exercise: yes, walks qd 15 minutes. Home smoke detector use: yes. Housing: owning. Living with: spouse. Marital status: . Occupation: weeks/months/years, works full-time. Pets: cats: dogs: 2 cats. Travel outside of the [place]: no. * Medications:?Taking Albutero l Sulfate HFA 108 (90 Base) MCG/ACT Aerosol Solution 1 puff as needed Inhalation every 4 hrs , Taking Vitamin D3 1000 UNIT Tablet 1 tablet Orally Once a day , Taking Vitamin B12 3000 MCG Tablet Sublingual as directed Sublingual , Not-Taking/PRN ProAir HFA 108 (90 Base) MCG/ACT Aerosol Solution 2 puffs as needed Inhalation every 6 hrs , Not-Taking/PRN Molnupiravir 200 MG Capsule 4 capsules Orally every 12 hrs , Not-Taking/PRN Ibuprofen 800 MG Tablet 1 tablet with food or milk Orally Three times a day , Medication List reviewed and reconciled with the patient * Allergies:?N.K.D.A. Objective: * Vitals:?Ht: 63, Wt: 137, BMI :24.27, BP:122/74, Wt-k.14. weight is down 6 pounds since 11-05-23. * ???Past Orders: ???Lab:Lipid Panel (Order Da te 10/31/2024) (Collection Date & Time - 10/31/2024 07:15 AM) ? Value Reference Range ?Triglycerides 127 <150 - mg/dL ?Cholesterol 214 H <200 - m g/dL ?LDL Cholesterol Calculated 134 H <100 - mg/dL ?HDL Cholesterol 55 >40 - mg/dL ???Lab:Vitamin D 25-OH Total (Order Date - 10/31/2024) (Collection Date & Time - 10/31/2024 07:15 AM) ? Value Reference Range ?Vitamin D 25-OH Total 63.9 >30 - ng/mL ???Lab:UA ClnCatch+Micro w/r flx Cult (Order Date - 10/31/2024) (Collection Date & Time - 10/31/2024 07:15 AM) ? Value Reference Range ?Color Urine Yellow - ?Appearance Urine Clear - ?PH 6.5 5.0-9.0 - ?Glucose Urine UA Negative Neg ative - mg/dL ?Urine Blood Negative Negative - ?Specific [place] - Urine 1.010 1.005-1.025 - ?Urine Protein Negative Neg-Tr ramos - mg/dL ?Urine Ketones Negative Negati ve - mg/dL ?Nitrite Urine Negative Negati ve - ?Leukocyte Esterase Urine Negative Negative - ?RBC Urine 0-2 0-2 - /HPF ?WBC Urine 0-5 0-5 - /HPF ?Squamous Epithelial Cell Urine 3-5 0-2 - /HPF ?Bacteria Urine Trace None Seen - ?Hyaline Casts Urine 0-2 0-2 - /LPF ???Lab:Complete Blood Count Auto Diff (Order Date - 10/31/2024) (Collection Date & Time - 10/31/2024 07:15 AM) ? Value Reference Range ?White Blood Count 6.4 4. 8-10.8 - X10*3/uL ?Red Blood Count 4.36 4.20 -5.50 - X10*6/uL ?Hemoglobin 13.7 12.0-16.0 - g/dl ?Hematocrit 40.8 37.0-47.0 - % ?Mean Corpuscular Volume 93.6 80.0-98.0 - fL ?Mean Corpuscular Hemoglobin 31.4 27.0-33.0 - pg ?Mean Corpuscular HGB Conc 33.6 31.0-35.0 - g/dl ?Red Cell Distribution Width 13.1 11.0-16.0 - % ?Platelet Count 267 160-4 00 - X10*3/uL ?Mean Platelet Volume 10.8 9.4-12.3 - fL ?Neutrophils Percent Auto 47.7 45-73 - % ?Imm Gran Pct Auto 0.2 0. 0-0.4 - % ?Lymphocytes Percent Auto 38.9 20-40 - % ?Monocytes Percent Auto 9.3 2-11 - % ?Eosinophils Percent Auto 2.2 0-4 - % ?Basophils Percent Auto 1.7 0-2 - % ?NRBC Pct Auto 0.0 0.0-0. 2 - /100WBC ?Neutrophils Absolute Auto 3.0 2.0-8.3 - x10*3/uL ?Imm Gran Abs Auto 0.01 0. 00-0.03 - X10*3/uL ?Lymphocytes Absolute Auto 2.5 1.2-4.9 - X10*3/uL ?Monocytes Absolute Auto 0.6 0.1-1.2 - X10*3/uL ?Eosinophils Absolute Auto 0.1 0.0-0.4 - X10*3/uL ?Basophils Absolute Auto 0.1 0.0-0.2 - X10*3/uL ?NRBC Abs Auto 0.000 0.0-0. 012 - X10*3/uL ???Lab:Comprehensive [place]. P kindra Fast (Order Date - 10/31/2024) (Collection Date & Time - 10/31/2024 07:15 AM) ? Value Reference Range ?Sodium 143 135-145 - mmo l/L ?Bilirubin Total 0.4 0.0- 1.0 - mg/dL ?Aspartate Amino Transferase 19 5-31 - U/L ?Alanine Aminotransferase 11 0-31 - U/L ?Total Protein 6.3 L 6.5-8. 0 - g/dL ?Albumin Level 4.0 3.5-5. 0 - g/dL ?Alkaline Phosphatase 65 39-117 - U/L ?Potassium 4.0 3.3-5.1 - mmol/L ?Chloride 108 96-108 - mm ol/L ?Carbon Dioxide 29 22-29 - mmol/L ?Anion Gap 10 L 12-20 - ?Blood Urea Nitrogen 12 9-16 - mg/dL ?Creatinine 0.77 0.5-1.4 - mg/dL ?Estimated Glomerular Filt Rate > 60 - ?Glucose Fasting 88 60-9 9 - mg/dL ?Calcium 9.1 8.4-10.2 - m g/dL * Examination: ???General Examination: ?GENERAL APPEARANCE:?well developed, well nourished, in no acute distress.?HEAD:?normocephalic, atraumatic.?EYES:?pupils equal, round, reactive to light and accommodation, sclera non-icteric.?EARS:?normal.?ORAL CAVITY:?mucosa moist.?THROAT:?clear.?NECK/THYROID:?neck supple, full range of motion, no cervical lymphadenopathy, no bruits.?SKIN:?warm and dry, no suspicious lesions.?HEART:?regular rate and rhythm, S1, S2 normal, no murmurs.?LUNGS:?clear to auscultation bilaterally.?BREASTS:?No mass, no lump.?ABDOMEN:?soft, nontender, nondistended, bowel sounds present, normal, no organomegaly , no masses palpable.?RECTAL EXAM:?just had colonoscopy.?FEMALE GENITOURINARY:?done by program dir.?EXTREMITIES:?no clubbing, cyanosis, or edema.?NEUROLOGIC:?nonfocal, motor strength normal upper and lower extremities, sensory exam intact.? Assessment: * Assessment: 1.?Vitamin B12 deficiency - E53.8 (Primary)???2.?Smoker unmotivated to quit - F17.210???3.?Asthma - J45.909???4.?Elevated LDL cholesterol level - E78.00???5.?Paroxysmal atrial fibrillation - I48.0???6.?Vitamin D deficiency - E55.9???7.?Depression screening - Z13.31??? Plan: * Treatment: 2.?Asthma? Refill Albuterol Sulfate HFA Aerosol Solution, 108 (90 Base) MCG/ACT, 1 puff as needed, Inhalation, every 4 hrs, 30 days, 1, Refills 5.?? Notes: stable, will continue current regiment?? 3.?Elevated LDL cholesterol level? Notes: advised on diet and exercise?? 4.?Vitamin D deficiency? Continue Vitamin D3 Tablet, 1000 UNIT, 1 tablet, Orally, Once a day.?? Notes: stable, will continue current regiment?? 5.?Depression screening? Notes: negative screen?? * Procedure Codes:?27116 VENIP UNCT, ROUTINE* * Preventive Medicine:? ??Counseling:?Care goal follow-up plan:?Counseling for abnormal BMI provided?Yes,?Above Normal BMI Follow-up?Giving encouragement to exercise.? * Follow Up:?1 Year * * The named appointment provid er may or may not be the originator of this progress note, and it is not deemed complete until electronically signed by the appointment provider. Sign off status: Pending * Provider:?Melecio Flores MD Date:?0 11/07/2024 Generated for Krysta walker/Ronnie/Shaynaitting on:?11/07/2024 04:54 PM EDT History and Physical Notes * HPI (History of Present Illness) Category Sub-Category Detail Notes Category Not es Symptom(s) patient is a 64 yo female here for visit with review of recent labs and follow up of chronic issues Depression Screening PHQ-9 Little inte rest or pleasure in doing things: Not at all Feeling down, depressed, or hopeless: No t at all Trouble falling or staying asleep, or sl eeping too much: Not at all Feeling tired or having little energy: N ot at all Poor appetite or overeating: Not at all Feeling bad about yourself o r that you are a failure, or have let yourself or your family down: Not at all Trouble concentrating on thi ngs, such as reading the newspaper or watching television: Not at all Moving or speaking so slowly that other people could have noticed; or the opposite, being so fidgety or restless that you have been moving around a lot more than usual: Not at all Thoughts that you would be b iris off or of hurting yourself in some way: Not at all Total Score: 0 Interpretation and Intervention Depression Turner garcia Findings: Negative Follow-Up for Depression: : review of PH Q-9 found negative result, no follow-up needed SDOH Questions SDOH Questions In the past year have you been worried about losing housing?: No In the past year have you or any family members you live with been unable to get any of the following when it was really needed? Check all that apply:: None Fall Risk History Have you had any falls with injury i n the past year?: No Have you had two or more falls in the st year?: No Communication Needs Communication Needs Does the patient have a hearing impairment: No Does the patient have a vision impairmen t?: Yes ?If yes, what is the vision impairment?: Glasses Does the patient have a cognition impair ment?: No Examination Category Sub-Category Detail Notes Category Not es General Examination GENERAL APPEARANCE: well dev eloped, well nourished, in no acute distress HEAD: normocephalic, atrau matic EYES: pupils equal, round, reactive to light and accommodation, sclera non- icteric EARS: normal THROAT: clear NECK/THYROID: neck supple, full ra nge of motion, no cervical lymphadenopathy, no bruits HEART: regular rate and rhy thm, S1, S2 normal, no murmurs LUNGS: clear to auscultatio n bilaterally ABDOMEN: soft, nontender, non distended, bowel sounds present, normal, no organomegaly , no masses palpable NEUROLOGIC: nonfocal, motor stre ngth normal upper and lower extremities, sensory exam intact SKIN: warm and dry, no jie picious lesions EXTREMITIES: no clubbing, cyanosi s, or edema BREASTS: No mass, no lump RECTAL EXAM: just had colonoscopy FEMALE GENITOURINARY: done by program dir ORAL CAVITY: mucosa moist
[2024-11-07 17:05] LABS: Vitamin B12 434 pg/mL (200-900)
== END 2024-11-07 15:32 | disposition home or self-care (01) ==
LOC: HO.LNP 15:31
PROVIDERS: Visit Provider Internal Medicine
DX: E53.8 Deficiency of other specified B group vitamins (principal)
CPT/HCPCS: 82607